=== PATIENT | male | born 1945 | race Caucasian/White ===

== ENCOUNTER 2025-05-13 10:27 | Observation (INO) ==
--- NOTE | 2025-05-13 10:40 | Emergency Department Note ---
Impression & Plan Weakness, Somnolence, Abnormal brain CT ED Provider Note NAME: ELTON COSME AGE: 80 SEX: M : 1945 ARRIVES VIA: Ambulance INFORMANT: [Patient][nursing, ems] ED PROVIDER(S): [Hemanth Baron MD] CHIEF COMPLAINT: Weakness HISTORY OF PRESENT ILLNESS: The patient is an 80-year-old male from [facility]. The patient has had progressive weakness for a month to the point where he now can barely function or even feed himself. The patient denies any pain, he is not short of breath. He is a poor historian though. He cannot really shed much light on the events of last month. PMHx/PSHx/Social Hx: See Below PHYSICAL EXAM: GENERAL: Patient is in no acute distress. HEENT: No acute trauma, normocephalic atraumatic, mucous membranes moist, no nasal congestion. Pupils equal and reactive to light. NECK: No stridor, no adenopathy, no meningismus, trachea is midline. LUNGS: Clear to auscultation bilaterally, no wheeze, no rhonchi, breath sounds equal. HEART: Without murmurs gallops or rubs, regular rate and rhythm. Heart tones distant. ABDOMEN: Soft, nontender, no peritonitis. EXTREMITIES: No cyanosis, full range of motion of all the joints without pain or difficulty. NEUROLOGIC: Awake and alert, seems somnolent. Moves all extremities equally. SKIN: No jaundice, no diaphoresis. DIFFERENTIAL DIAGNOSIS: Stroke, electrolyte imbalance, anemia, UTI, liver or renal failure, debilitation, among others. EMERGENCY DEPARTMENT PROCEDURES: MEDICAL DECISION MAKING: There is no leukocytosis or worrisome anemia. There is a normal platelet count. No bandemia. No renal failure or significant electrolyte abnormality. No concerning liver enzyme elevation. Ammonia level is not elevated. The patient appears to be in a euthyroid state. ECG shows an atrial pacemaker, no acute ischemia. Cardiac enzyme testing x 1 is not consistent with acute cardiac injury. Urinalysis does not show infection. Brain CT shows some chronic older changes but no acute bleed. On exam, the patient was fairly somnolent and appeared diffusely weak. He was not toxic or febrile. The patient did complain of some left hip pain during his ED stay. Films of the left hip and pelvis were performed, no fracture or bony dislocation seen. Patient received IV saline for hydration. The patient's symptoms have progressed for more than a month. He is now at the point where he can no longer feed himself. He is not safe for discharge back to his care facility. Hospitalization, further workup/care is warranted. I spoke with the patient and case management, the on-call hospitalist was consulted. Prior/Outside records/notes reviewed: Today's EMS note describing his presentation and transport at this hospital. ECG per my interpretation: Indication was weakness. The ECG shows an atrial pacemaker with a prolonged AV conduction. The rate is 75. There is some baseline artifact. LVH is present. There is no acute ST elevation, no PVCs. The QTc is 419. Continuous Cardiac Monitoring per my interpretation: An order was placed for continuous cardiac monitoring. The monitor shows a rate of 66 with an atrial pacemaker. Imaging/x-ray results per my interpretation: Chest x-ray does not show pneumonia or CHF. Films of the left hip and pelvis do not show fracture or dislocation. Chronic Medical/Social conditions affecting care: Advanced age, [facility] resident. Care/Management discussed with: Case management and the on-call hospitalist. Level of care consideration(s): After review of the information above and other included data: --I believe the patient requires escalation of care to admission DISPOSITION: Admission Past Med/Surg History Problem List (Updated 05/13/25 @ 17:56 by Hemanth Baron MD) Abnormal brain CT (Acute) Somnolence (Acute) Weakness (Acute) Ambulatory dysfunction At high risk for falls Prediabetes History of CVA (cerebrovascular accident) Altered mental status Generalized weakness Hyperlipidemia Dehydration (Acute) Medical History CKD stage 3a, GFR 45-59 ml/min Seizures Hyperparathyroidism Aortic valve stenosis Anemia Surgical History (Updated 05/13/25 @ 13:55 by Jayy Vidales PA-C) Status cardiac pacemaker Social History Smoking Status: Never smoker Hx Alcohol Use: No Hx Substance Use: No Preferred Language: Kenyan Communication Ability: 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 Required: No Beliefs That Will Affect Care: None Current Living Situation: Personal Care Facility Other Information That Helps Us Care for You: No Feels Safe at Home: Yes Safety Concerns: Feels Safe At This Time Assistive Devices: Cane and Walker Allergies Allergies Allergy/AdvReac Type Severity Reaction Status Date / Time No Known Allergies Allergy Unverified 05/13/25 13:08 Home Meds Home Medications Medication Instructions Recorded Confirmed atorvastatin 40 mg tablet 40 mg PO DAILY #0 tabs 03/13/15 05/13/25 acetaminophen 500 mg tablet 1,000 mg PO DAILY pain 05/13/25 05/13/25 gabapentin 100 mg tablet 100 mg PO TID 05/13/25 05/13/25 lamotrigine 100 mg tablet 100 mg PO DAILY 05/13/25 05/13/25 levetiracetam 500 mg tablet 1,000 mg PO HS 05/13/25 05/13/25 (Keppra) levetiracetam 500 mg tablet 500 mg PO QAM 05/13/25 05/13/25 (Keppra) quetiapine 25 mg tablet (Seroquel) 25 mg PO BID 05/13/25 05/13/25 Results & Data (ED) Vital Signs Vital Signs - 24 hr 05/13/25 10:35 05/13/25 10:38 05/13/25 10:53 Temperature 36.4 C L Temperature Source Oral Pulse Rate 66 Pulse Rate [Apical] Pulse Rate from SpO2 Sensor Respiratory Rate 18 Respiratory Effort / Characteristics Non-Labored Spontaneous Respiratory Depth Normal Respiratory Pattern Regular Blood Pressure 155/92 H Blood Pressure [Left Arm] Blood Pressure Mean 113 Blood Pressure Mean [Left Arm] Blood Pressure Position [Left Arm] Pulse Oximetry 97 96 94 Oxygen Delivery Method Room Air Room Air Room Air Sepsis Recent Fever Within 48 Hours No Sepsis New/Unexplained Change in Mental Status No Sepsis Action Taken by Nursing No Action Required 05/13/25 10:57 05/13/25 11:00 05/13/25 11:06 Temperature Temperature Source Pulse Rate 60 60 60 Pulse Rate [Apical] Pulse Rate from SpO2 Sensor 60 60 Respiratory Rate 12 12 Respiratory Effort / Characteristics Respiratory Depth Respiratory Pattern Blood Pressure Blood Pressure [Left Arm] Blood Pressure Mean Blood Pressure Mean [Left Arm] Blood Pressure Position [Left Arm] Pulse Oximetry 95 95 Oxygen Delivery Method Sepsis Recent Fever Within 48 Hours Sepsis New/Unexplained Change in Mental Status Sepsis Action Taken by Nursing 05/13/25 11:15 05/13/25 11:16 05/13/25 11:16 Temperature Temperature Source Pulse Rate 64 Pulse Rate [Apical] Pulse Rate from SpO2 Sensor 63 Respiratory Rate 16 Respiratory Effort / Characteristics Respiratory Depth Respiratory Pattern Blood Pressure 154/85 H 154/85 H Blood Pressure [Left Arm] Blood Pressure Mean 122 122 Blood Pressure Mean [Left Arm] Blood Pressure Position [Left Arm] Pulse Oximetry 96 Oxygen Delivery Method Sepsis Recent Fever Within 48 Hours Sepsis New/Unexplained Change in Mental Status Sepsis Action Taken by Nursing 05/13/25 11:16 05/13/25 11:19 05/13/25 11:24 Temperature Temperature Source Pulse Rate 60 Pulse Rate [Apical] 61 Pulse Rate from SpO2 Sensor 60 Respiratory Rate 14 12 Respiratory Effort / Characteristics Non-Labored Spontaneous Respiratory Depth Normal Respiratory Pattern Regular Blood Pressure 154/85 H Blood Pressure [Left Arm] 154/85 H Blood Pressure Mean 122 Blood Pressure Mean [Left Arm] 108 Blood Pressure Position [Left Arm] Semi-fowlers Pulse Oximetry 97 96 Oxygen Delivery Method Room Air Sepsis Recent Fever Within 48 Hours Sepsis New/Unexplained Change in Mental Status Sepsis Action Taken by Nursing 05/13/25 11:30 05/13/25 11:30 05/13/25 11:39 Temperature Temperature Source Pulse Rate 64 Pulse Rate [Apical] Pulse Rate from SpO2 Sensor 64 Respiratory Rate 14 Respiratory Effort / Characteristics Respiratory Depth Respiratory Pattern Blood Pressure 167/90 H 167/90 H Blood Pressure [Left Arm] Blood Pressure Mean 127 127 Blood Pressure Mean [Left Arm] Blood Pressure Position [Left Arm] Pulse Oximetry 97 Oxygen Delivery Method Sepsis Recent Fever Within 48 Hours Sepsis New/Unexplained Change in Mental Status Sepsis Action Taken by Nursing 05/13/25 11:48 05/13/25 12:03 05/13/25 12:30 Temperature Temperature Source Pulse Rate 60 61 Pulse Rate [Apical] Pulse Rate from SpO2 Sensor 60 62 Respiratory Rate 16 18 Respiratory Effort / Characteristics Respiratory Depth Respiratory Pattern Blood Pressure 170/85 H 173/98 H Blood Pressure [Left Arm] Blood Pressure Mean 113 133 Blood Pressure Mean [Left Arm] Blood Pressure Position [Left Arm] Pulse Oximetry 97 96 Oxygen Delivery Method Sepsis Recent Fever Within 48 Hours Sepsis New/Unexplained Change in Mental Status Sepsis Action Taken by Nursing 05/13/25 12:30 05/13/25 13:00 05/13/25 13:00 Temperature Temperature Source Pulse Rate 62 67 Pulse Rate [Apical] 64 Pulse Rate from SpO2 Sensor 62 67 Respiratory Rate 16 18 15 Respiratory Effort / Characteristics Respiratory Depth Normal Respiratory Pattern Blood Pressure Blood Pressure [Left Arm] Blood Pressure Mean Blood Pressure Mean [Left Arm] Blood Pressure Position [Left Arm] Pulse Oximetry 98 96 Oxygen Delivery Method Sepsis Recent Fever Within 48 Hours Sepsis New/Unexplained Change in Mental Status Sepsis Action Taken by Nursing 05/13/25 13:01 05/13/25 13:27 05/13/25 13:31 Temperature Temperature Source Pulse Rate 68 Pulse Rate [Apical] Pulse Rate from SpO2 Sensor 68 Respiratory Rate 19 Respiratory Effort / Characteristics Respiratory Depth Respiratory Pattern Blood Pressure 183/80 H 185/86 H Blood Pressure [Left Arm] Blood Pressure Mean 126 112 Blood Pressure Mean [Left Arm] Blood Pressure Position [Left Arm] Pulse Oximetry 95 Oxygen Delivery Method Sepsis Recent Fever Within 48 Hours Sepsis New/Unexplained Change in Mental Status Sepsis Action Taken by Nursing 05/13/25 13:33 Temperature Temperature Source Pulse Rate 62 Pulse Rate [Apical] Pulse Rate from SpO2 Sensor 62 Respiratory Rate 17 Respiratory Effort / Characteristics Respiratory Depth Respiratory Pattern Blood Pressure Blood Pressure [Left Arm] Blood Pressure Mean Blood Pressure Mean [Left Arm] Blood Pressure Position [Left Arm] Pulse Oximetry 97 Oxygen Delivery Method Sepsis Recent Fever Within 48 Hours Sepsis New/Unexplained Change in Mental Status Sepsis Action Taken by [facility] Medications Current Medication List: was personally reviewed by me Laboratory Data Attestation: I reviewed the patient's lab results. 05/13/25 10:41 05/13/25 10:41 Lab Results 05/13/25 05/13/25 Range/Units 10:41 12:29 WBC 7.06 (4.8-10.8) K/ul RBC 4.37 L (4.70-6.10) M/uL Hgb 13.6 L (14.0-18.0) g/dl Hct 42.2 (42.0-52.0) % MCV 96.6 (80.0-100.0) fL MCH 31.1 (25.0-34.0) pg MCHC 32.2 (32.0-36.0) g/dL RDW Std Deviation 43.6 (36.4-46.3) fL RDW Coeff of Shyam 12.2 (11.5-14.5) % Plt Count 164 (130-400) K/uL MPV 10.5 (9.4-12.4) fL Immature Gran % (Auto) 0.3 % Neut % (Auto) 55.0 % Lymph % (Auto) 25.5 % Saunders % (Auto) 9.6 % Eos % (Auto) 8.6 % Baso % (Auto) 1.0 % Neut # (Auto) 3.88 (1.40-6.50) K/uL Lymph # (Auto) 1.80 (1.20-3.40) K/uL Saunders # (Auto) 0.68 H (0.11-0.59) K/uL Eos # (Auto) 0.61 H (0.00-0.50) K/uL Baso # (Auto) 0.07 (0.00-0.20) K/uL Immature Gran # (Auto) 0.02 (0.01-0.20) K/uL Sodium 145 (136-145) mmol/L Potassium 4.2 (3.5-5.1) mmol/L Chloride 111 H (98-107) mmol/L Carbon Dioxide 28 (21-32) mmol/L Anion Gap 6 (3-11) BUN 21 (6-23) mg/dl Creatinine 1.23 (0.6-1.4) mg/dl Est Cr Clr Drug Dosing 49.5 ml/min eGFR 59.35 BUN/Creatinine Ratio 17.1 (10-20) Glucose 91 (70-99(Fasting)) mg/dl Calcium 9.6 (8.6-10.3) mg/dl Magnesium 2.1 (1.7-2.4) mg/dl Total Bilirubin 0.7 (0.2-1.0) mg/dl AST 16 (13-39) U/L ALT 18 (7-52) U/L Alkaline Phosphatase 75 (34-104) U/L Ammonia 26.0 (18-72) umol/L Troponin I High Sens 8.9 (0-20) pg/ml Total Protein 7.5 (6.0-8.3) gm/dl Albumin 4.5 (3.4-5.0) gm/dl Globulin 3.0 (2.5-4.0) gm/dl Albumin/Globulin Ratio 1.5 (0.9-2) TSH 0.627 (0.300-4.500) uIu/ml Urine Color Yellow Urine Appearance Clear (Clear) Urine pH 6.0 (4.5-7.5) Ur Specific [place] 1.020 (1.000-1.030) Urine Protein Trace H (Negative) Urine Glucose (UA) Negative (Negative) Urine Ketones Negative (Negative) Urine Blood Negative (Negative) Urine Nitrite Negative (Negative) Urine Bilirubin Negative (Negative) Urine Urobilinogen Negative (Negative) Ur Leukocyte Esterase Negative (Negative) Urine WBC (Auto) 0-5 (0-5) /hpf Urine RBC (Auto) 0-2 (0-2) /hpf U Hyaline Cast (Auto) 0-2 (0-2) /lpf U Epithel Cells (Auto) 0-2 (0-2) /hpf Urine Bacteria (Auto) None Seen (None Seen) Urine Comment Administered Medications Gabapentin (Gabapentin 100 Mg Cap) 100 mg PO TID [facility] Stop: 06/12/25 15:14 Last Admin: 05/13/25 16:10 Dose: 100 mg Documented By: AUBRIE Discontinued Medications Sodium Chloride (Nss) 500 mls @ 999 mls/hr IV .Q31M NATHANIEL Stop: 05/13/25 11:15 Last Infusion: 05/13/25 12:08 Dose: Infused Documented By: Admin: 05/13/25 11:17 Dose: 999 mls/hr Documented By: RUFUS Ioversol (Optiray 320 125ml) 118 ml IV ONCE ONE Stop: 05/13/25 13:59 Last Admin: 05/13/25 13:58 Dose: 118 ml Documented By: NYLA Imaging Data Radiologist's Impression: Chest X-Ray 05/13/25 10:37 XR chest 1V portable CLINICAL HISTORY: weakness COMPARISON STUDY: 03/13/2015 FINDINGS: There is an interval left-sided dual-lead pacemaker. Stable mild cardiomegaly without pulmonary vascular congestion. No effusion, consolidation, or pneumothorax. IMPRESSION: No acute findings. ACT 112: Negative or not required by law. Electronically signed by: Luis Fernando Castillo M.D. 05/13/2025 10:[address] 05/13/25 10:37 CT head/brain wo con CLINICAL HISTORY: weak. TECHNIQUE: Multiple axial CT images of the head were obtained without contrast. A dose lowering technique was utilized adhering to the principles of ALARA. CT DOSE: 625.8 mGy.cm COMPARISON: 03/13/2015 FINDINGS: There is progressive severe patchy periventricular hypodensity which is nonspecific but usually represents chronic small vessel ischemic change. There is interval focal hypodensity posteriorly in the occipital lobes consistent with interval infarctions, likely old. There is an interval 2 cm serpiginous increased density finding posterior medial right occipital lobe. There are globus pallidus calcifications. No intracranial hemorrhage seen. No mass effect, midline shift, or hydrocephalus. No skull fracture seen. Visualized paranasal sinuses and mastoid air cells are clear. IMPRESSION: 1. Progressive severe chronic small vessel ischemic changes. 2. Interval infarctions in the posterior occipital lobes, likely chronic. 3. Interval serpiginous increased density finding posterior medial right occipital lobe. This likely represents partially calcified cortex due to prior infarction or hemorrhage. Suggest follow-up MRI with and without contrast to make sure there is no enhancing mass at this location. 4. Otherwise no acute findings seen. 5. Otherwise as described. ACT 112: Positive. There are findings on this exam that require communication between the performing entity and the patient following Patient Test Result Information Act ([place] Act 112) guidelines. The above report was generated using voice recognition software. It may contain grammatical, syntax or spelling errors. Electronically signed by: Luis Fernando Castillo M.D. 05/13/2025 11:25 AM Hip/Pelvis X-Ray 05/13/25 11:16 EXAM: XR hip LT 2V w pelvis CLINICAL HISTORY: Pelvic pain. TECHNIQUE: X-ray images of the left hip joint AP and lateral, and pelvis AP views were obtained. COMPARISON: No prior studies available for comparison. FINDINGS: Bone Structure: Pelvic bones, including the iliac wings, ischium, pubis, and sacrum, are normal and intact. No evidence of fractures, dislocations, or significant osseous lesions. 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 No evidence of hip dislocation or subluxation. Acetabulum: Acetabular structures appear normal and intact. No signs of acetabular fracture or dysplasia. Symphysis Pubis: Symphysis pubis is normal and intact. No evidence of separation or widening. Sacroiliac Joints: Mild bilateral degenrtaive sacroiliitis. Soft Tissues: Two left-sided pelvic phleboli. Large well-defined midline pelvic density noted in the expected site of the urinary bladder, suggesting contrast filling / large stones for clinical, U/S, and CT correlation. Left-sided calcifications noted overlying the gluteal insertion into the greater trochanter. Additional Findings: No other significant abnormalities noted. IMPRESSION: 1. 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 2. Mild bilateral degenertaive sacroiliitis. 3. Two left-sided pelvic phleboli. 4. Large, well-defined midline pelvic density noted in the expected site of the urinary bladder, suggesting contrast filling rather than large stones for clinical, U/S, and CT correlation. 5. Left-sided calcifications overlying the gluteal insertion into the greater trochanter, suggesting Gluteal calcific tendinitis. 6. No evidence of acute fractures or dislocations. Disclaimer: A subtle bone abnormality or fracture may not be readily apparent on X-rays, thus clinical correlation and further imaging including follow-up CT, MRI, or follow-up X-rays are advised as needed. Electronically signed by Joni Hill 05-13-2025 5:36 PM Discharge Plan Visit Data Chief Complaint: Weakness ED Provider: Hemanth Baron Discharge Problem: Weakness, Somnolence, Abnormal brain CT Patient Disposition: Admitted As Inpatient Condition: Fair Discharge Instructions Interventions: ED Discharge Assessment Last Done: 05/13/25 14:36
--- NOTE | 2025-05-13 10:55 | XRay Report ---
XR chest 1V portable CLINICAL HISTORY: weakness COMPARISON STUDY: 03/13/2015 FINDINGS: There is an interval left-sided dual-lead pacemaker. Stable mild cardiomegaly without pulmo nary vascular congestion. No effusion, consolidation, or pneumothorax. IMPRESSION: No acute findings. ACT 112: Negative or not required by law. Electronically signed by: Luis Fernando Castillo M.D. 05/13/2025 10:54 AM
[2025-05-13 11:04] LABS: Hematocrit (blood only) 42.2 % (42.0-52.0); Hemoglobin 13.6 g/dl (14.0-18.0); Immature Granulocytes # (auto) 0.02 K/uL (0.01-0.20); Immature Granulocytes % (auto) 0.3 %; Mean Corpuscular Hemoglobin 31.1 pg (25.0-34.0); Mean Corpuscular Volume 96.6 fL (80.0-100.0); Platelet Count 164 K/uL (130-400); RDW Standard Deviation 43.6 fL (36.4-46.3); Red Blood Count 4.37 M/uL (4.70-6.10); White Blood Count 7.06 K/ul (4.8-10.8)
[2025-05-13] MEDS: SODIUM CHLORIDE 0.9% 500 ML IV SCH (11:17)
[2025-05-13 11:18] LABS: Alanine Aminotransferase 18.0 U/L (7-52); Albumin Globulin Ratio 1.5 (0.9-2); Alkaline Phosphatase 75.0 U/L (34-104); Anion Gap 6.0 (3-11); Bilirubin,Total 0.7 mg/dl (0.2-1.0); Blood Urea Nitrogen 21.0 mg/dl (6-23); Calcium 9.6 mg/dl (8.6-10.3); Carbon Dioxide 28.0 mmol/L (21-32); Chloride 111.0 mmol/L (98-107); Creatinine Clr Calc Pharmacy 49.5 ml/min; Globulin 3.0 gm/dl (2.5-4.0); Glucose 91.0 mg/dl (70-99(Fasting)); Magnesium 2.1 mg/dl (1.7-2.4); Potassium 4.2 mmol/L (3.5-5.1); Sodium 145.0 mmol/L (136-145); Total Protein 7.5 gm/dl (6.0-8.3)
--- NOTE | 2025-05-13 11:26 | CT Scan Report ---
CT head/brain wo con CLINICAL HISTORY: weak. TECHNIQUE: Multiple axial CT images of the head were obtained without contrast. A dose lowering tech nique was utilized adhering to the principles of ALARA. CT DOSE: 625.8 mGy.cm COMPARISON: 03/13/2015 FINDINGS: There is progressive severe patchy periventricular hypodensity which is nonspecific but usu ally represents chronic small vessel ischemic change. There is interval focal hypodensity posteriorly in the occipital lobes consistent with interval infarctions, likely old. There is an interval 2 cm s erpiginous increased density finding posterior medial right occipital lobe. There are globus pallidus calcifications. No intracranial hemorrhage seen. No mass effect, midline shift, or hydrocephalus. No skull fracture seen. Visualized paranasal sinuses and mastoid air cells are clear. IMPRESSION: 1. Progressive severe chronic small vessel ischemic changes. 2. Interval infarctions in the posterior occipital lobes, likely chronic. 3. Interval serpiginous increased density finding posterior medial right occipital lobe. This likely represents partially calcified cortex due to prior infarction or hemorrhage. Suggest follow-up MRI wi th and without contrast to make sure there is no enhancing mass at this location. 4. Otherwise no acute findings seen. 5. Otherwise as described. ACT 112: Positive. There are findings on this exam that require communication between the performing entity and the patient following Patient Test Result Information Act ([place] Act 112) guidelines. The above report was generated using voice recognition software. It may contain grammatical, syntax o r spelling errors. Electronically signed by: Luis Fernando Castillo M.D. 05/13/2025 11:25 AM
[2025-05-13 11:32] LABS: Thyroid Stimulating Hormone 0.627 uIu/ml (0.300-4.500)
--- NOTE | 2025-05-13 12:39 | History & Physical Report ---
Date of Service May 13, 2025 Assessment & Plan (1) Altered mental status: (2) History of CVA (cerebrovascular accident): (3) Generalized weakness: (4) Ambulatory dysfunction: Plan This is an 80-year-old male who presented on 05/13 from [facility] for decreased ADLs x 1 month [place]. Nursing staff concerned due to 1 month decline in ambulation, thought processes, and ability to feed himself; they believe he may need a higher level of care. #Altered mental status | H/o CVA Per nursing staff at [facility], patient has had a acute decline over the past month and cognition No leukocytosis; afebrile UA negative on arrival CXR without acute findings Nursing staff at [facility] denies strokelike symptoms (such as slurred speech, facial droop, or unilateral deficits) While he has had CVAs in the past, he is not currently on blood thinners due to history of brain bleed (per son) Medical records requested from [facility] Head CT on arrival revealed progressive severe chronic small vessel ischemic changes, and chronic infarcts; no acute finding Head/neck CTA ordered, pending Brain MRI ordered, pending Case management consult appreciated; while patient has had an acute decline over the past month, suspect there is a large chronic component/gradual decline that may require patient to seek out a higher level of care upon discharge #Generalized weakness | ambulatory dysfunction PT/OT evaluations appreciated Fall precautions #Neuropathy Continue gabapentin 100 mg TID #Mood disorder Continue quetiapine 25 mg BID #HLD Continue atorvastatin 40 mg daily AM fasting lipid panel #History of seizures Continue Keppra 500 mg QAM and 1000 mg QPM Continue lamotrigine 100 mg QAM #Cardiac pacemaker present Noted; placed at [facility] Pacemaker interrogation ordered VT x 84 beats in October 2024 at 114bpm; ? sinus tach Episodes of SVT in November 2024 (154bpm) No additional episodes since March, per [employer] Continuous telemetry monitoring for now #Prediabetic Not currently on diabetic medications T2DM diet BSG checks ACHS AM A1c Disposition: Admit to [facility] with telemetry VTE PPx: SCDs; hold chemical DVT PPx pending paperwork from outside hospitals (? son reports history of brain bleed) Spoke on the phone with patient's son/medical POA (Gold) and provided update regarding admission status 05/13. Spoke on the phone with patient's son (Boris), who lives in [place], and provided update regarding admission status 05/13. History of Present Illness Chief Complaint: Weakness, generalized decline Primary Care Provider: Andreea of [place] Mr. Wright is an 80-year-old male with PMH of HLD. He presented from [facility] on 05/13 for worsening weakness and confusion over the past month. Per [facility] nursing staff, he has had a generalized decline in ADLs; difficulty walking and unable to feed himself. Patient is a poor historian on arrival. He is unsure why he is in the hospital, but says he thinks he "had an emergency". He denies any pain at this time. No falls. He is unsure if he has been sick recently, but thinks he may have had a fever at one point. He also reports that his legs have felt restless, and that he is having tics which are new for him. Overall, he reports that he "just does not feel good". Patient exhibits difficulty articulating his thoughts, and often struggles responding to questioning. He is alert and oriented to name, , month of the year, and knows that he is in the hospital; however he is unsure of his purpose in the hospital. He denies smoking, tobacco use, recent alcohol use. Patient is hypertensive 170/85 at admission; vitals otherwise stable. ED course: NSS 500 mL IV ROS: Patient endorses potential fever earlier in the week (he is unsure; says is "wasn't major"), generalized fatigue, Patient denies chills, night-sweats, body aches, dizziness, lightheadedness, headaches, changes in vision, confusion, chest pain, SOB, abdominal pain, nausea, vomiting, change in urinary/bowel habits, burning with urination, or numbness/tingling in the arms or legs. Spoke on the phone with [facility] nursing staff (Hilaria) who is familiar with the patient. She reports that, when he originally came to [facility] a couple months ago, he was doing okay, then had a very noticeable/rapid decline over the past month. Nursing staff report that his cognition has declined, and while he was originally using a cane upon arrival, he was transition to a walker, as he was deemed unsafe to use a cane. Today, while ambulating to the hallways, he needed a chair due to decreased ambulatory function. Additionally, he was unable to focus, and could not remember where he was walking. Nursing staff does report that his medications have recently been changed (some of the dosage for his seizure medications were changed, and he was started on Seroquel yesterday on 05/12). Nursing staff denies witnessing any strokelike symptoms such as slurred speech, facial droop, unilateral deficits. No reported falls. No reported seizures. Overall, they characterize it as an acute change in cognitive/physical baseline over a 1 month period. Patient is having difficulty with ADLs, and is unable to feed himself. For these reasons, staff are concerned that he is not currently at the right level of care. Spoke on the phone with patient's son/medical POA (Gold). Son reports he has not seen him in the past couple months, however his other son (Boris) lives in [place] and reports that - since [facility] - there has been a significant change. Gold reports that the patient's cognition has gradually been declining over the past 2 years, and they would be transient episodes of loss of focus or thought processes. Son also reports that he does have a history of prior stroke/TIAs, as well as a blood clot in his brain. He believes he is unable to take blood thinners due to history of brain bleed. These records are from [facility] in [place]. There are also hospital records from [facility] in [place], where patient was that for a couple years. Spoke on the phone with patient's son (Boris). He reports that he sees his father every week or so. Patient was previously living in [place], but came to [facility] at the end of January (2.5 months). Patient visited with him 1 week before , and took him to a baseball game; at that time the patient was doing well, ambulating well, and did not exhibit many cognitive deficits. Then, when the son saw him on the week following the game, he felt like he "did not look like the same person". Boris is unsure about the reason for not being on antiplatelets, but has been told the patient is unable to take aspirin/Plavix. Son believes that his pacemaker was placed at [facility]. Allergies Allergy/AdvReac Type Severity Reaction Status Date / Time No Known Allergies Allergy Unverified 05/13/25 13:08 Home Medications Medication Instructions Recorded Confirmed Type atorvastatin 40 mg tablet 40 mg PO DAILY #0 tabs 03/13/15 05/13/25 History acetaminophen 500 mg tablet 1,000 mg PO DAILY pain 05/13/25 05/13/25 History gabapentin 100 mg tablet 100 mg PO TID 05/13/25 05/13/25 History lamotrigine 100 mg tablet 100 mg PO DAILY 05/13/25 05/13/25 History levetiracetam 500 mg tablet 1,000 mg PO HS 05/13/25 05/13/25 History (Keppra) levetiracetam 500 mg tablet 500 mg PO QAM 05/13/25 05/13/25 History (Keppra) quetiapine 25 mg tablet (Seroquel) 25 mg PO BID 05/13/25 05/13/25 History Past Med/Surg History Problem List (Updated 05/13/25 @ 17:56 by Hemanth Baron MD) Abnormal brain CT (Acute) Somnolence (Acute) Weakness (Acute) Ambulatory dysfunction At high risk for falls Prediabetes History of CVA (cerebrovascular accident) Altered mental status Generalized weakness Hyperlipidemia Dehydration (Acute) Medical History CKD stage 3a, GFR 45-59 ml/min Seizures Hyperparathyroidism Aortic valve stenosis Anemia Surgical History (Updated 05/13/25 @ 13:55 by Jayy Vidales PA-C) Status cardiac pacemaker Social History Smoking Status: Never smoker Hx Alcohol Use: No Hx Substance Use: No Preferred Language: Venezuelan Communication Ability: Effective Licensed Clinician Required: No Beliefs That Will Affect Care: None Current Living Situation: Personal Care Facility Other Information That Helps Us Care for You: No Feels Safe at Home: Yes Safety Concerns: Feels Safe At This Time Assistive Devices: Cane and Walker Review of Systems Review of Systems: See HPI above Physical Exam Physical Exam: General: no acute distress; pleasant affect; non-toxic appearing; frail appearing; cooperative; SpO2 96% on RA HEENT: normocephalic, atraumatic; no scleral icterus; PERRLA w/ EOMs intact; vision and hearing intact Neck: supple; no lymphadenopathy; trachea midline Skin: warm, dry without signs of tenting; no cyanosis; no rashes, bruising, lesions, or erythema noted CV: chest wall NTP; RRR; S1/S2 normal; no murmurs/rubs/gallops; pulses intact and symmetric at radial, DP, and PT Lungs: no acute respiratory distress; symmetrical chest wall expansion; clear br eath sounds across all lung leal w/o adventitious sounds; no wheezing ABD: Soft, NTP; BS present; no rebound/guarding; no distention MSK: no tics or fasciculations; no edema noted in the LEs b/l, nonerythematous; 5/5% bilaterally; patient demonstrates ability wiggle toes bilaterally Neuro: A&Ox3, but does not know why he is in the hospital; slow to respond to questioning; difficulty with articulation; fluent speech, no slurred speech or facial droop; no focal deficits appreciated; patient reports sensation is intact dysmetric in the upper and lower extremities bilaterally Results & Data Results & Data Vital Signs (Past 12 Hours) Vital Signs Temp Pulse Pulse Resp BP BP Pulse Ox 05/13/25 12:03 61 18 170/85 H 96 05/13/25 11:48 60 16 97 05/13/25 11:39 64 14 97 05/13/25 11:30 167/90 H 05/13/25 11:30 167/90 H 05/13/25 11:24 60 12 96 05/13/25 11:19 61 14 154/85 H 97 05/13/25 11:16 154/85 H 05/13/25 11:16 154/85 H 05/13/25 11:16 154/85 H 05/13/25 11:15 64 16 96 05/13/25 11:06 60 05/13/25 11:00 60 12 95 05/13/25 10:57 60 12 95 05/13/25 10:53 94 05/13/25 10:38 96 05/13/25 10:35 36.4 C L 66 18 155/92 H 97 O2 Del Method 05/13/25 12:03 05/13/25 11:48 05/13/25 11:39 05/13/25 11:30 05/13/25 11:30 05/13/25 11:24 05/13/25 11:19 Room Air 05/13/25 11:16 05/13/25 11:16 05/13/25 11:16 05/13/25 11:15 05/13/25 11:06 05/13/25 11:00 05/13/25 10:57 05/13/25 10:53 Room Air 05/13/25 10:38 Room Air 05/13/25 10:35 Room Air Laboratory Results Abnormal lab results 05/13/25 Range/Units 10:41 RBC 4.37 L (4.70-6.10) M/uL Hgb 13.6 L (14.0-18.0) g/dl [place] # (Auto) 0.68 H (0.11-0.59) K/uL [place] # (Auto) 0.61 H (0.00-0.50) K/uL Chloride 111 H (98-107) mmol/L Diagnostic Findings Chest X-Ray 05/13/25 10:37 XR chest 1V portable CLINICAL HISTORY: weakness COMPARISON STUDY: 03/13/2015 FINDINGS: There is an interval left-sided dual-lead pacemaker. Stable mild cardiomegaly without pulmonary vascular congestion. No effusion, consolidation, or pneumothorax. IMPRESSION: No acute findings. ACT 112: Negative or not required by law. Electronically signed by: Luis Fernando Castillo M.D. 05/13/2025 10:[address] 05/13/25 10:37 CT head/brain wo con CLINICAL HISTORY: weak. TECHNIQUE: Multiple axial CT images of the head were obtained without contrast. A dose lowering technique was utilized adhering to the principles of ALARA. CT DOSE: 625.8 mGy.cm COMPARISON: 03/13/2015 FINDINGS: There is progressive severe patchy periventricular hypodensity which is nonspecific but usually represents chronic small vessel ischemic change. There is interval focal hypodensity posteriorly in the occipital lobes consistent with interval infarctions, likely old. There is an interval 2 cm serpiginous increased density finding posterior medial right occipital lobe. There are globus pallidus calcifications. No intracranial hemorrhage seen. No mass effect, midline shift, or hydrocephalus. No skull fracture seen. Visualized paranasal sinuses and mastoid air cells are clear. IMPRESSION: 1. Progressive severe chronic small vessel ischemic changes. 2. Interval infarctions in the posterior occipital lobes, likely chronic. 3. Interval serpiginous increased density finding posterior medial right occipital lobe. This likely represents partially calcified cortex due to prior infarction or hemorrhage. Suggest follow-up MRI with and without contrast to make sure there is no enhancing mass at this location. 4. Otherwise no acute findings seen. 5. Otherwise as described. ACT 112: Positive. There are findings on this exam that require communication between the performing entity and the patient following Patient Test Result Information Act ([place] Act 112) guidelines. The above report was generated using voice recognition software. It may contain grammatical, syntax or spelling errors. Electronically signed by: Luis Fernando Castillo M.D. 05/13/2025 11:25 AM ECG Additional Comments: ECG revealed atrial paced rhythm with prolonged AV conduction at 75 bpm; QTc 419 (no prior EKGs for comparison) Code Status & VTE Plan Code Status DNR/DNI (confirmed via paperwork sent in from [facility], as well as with [facility] nursing staff) VTE Prophylaxis Plan VTE Prophylaxis will be ordered: Yes Supervising Physician Co-Signing Physician Notes Attending Attestation & Admit Note: Pt seen/examined, chart reviewed, admit care plan d/w VITOR Vidales. I agree w/ the roland components of his admission documentation. 80yo male with history of pacemaker status, hyperlipidemia, seizure disorder, prior stroke, ?prior ICH, mild cognitive impairment, pre-DM, and recent placement at [facility]. By report of the staff at [facility] as well as the pt's family he has had a progressive decline in his overall physical/mental status since arrival to [facility]. He has had severe confusion to the point of requiring antipsychotic use (started yesterday by report). During my admission assessment he was unable to offer any meaningful history. He had considerable difficulty answering questions. 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 PMH/PSH/allergies/meds/sochx - reviewed VSS, afebrile gen - awake, alert - but confused, unable to answer questions eyes - PERRL mouth - MM dry neck - no JVD heart - RRR, s1 s2, 2/6 systolic murmur RUSB lungs - CTA b/l abd - soft NT ND BS+ ext - no edema, pulses 2+ b/l feet neuro - strength 5/5 x 4 exts; EOMI and without nystagmus; visual leal seem full by direct confrontation psych - oriented to person only labs reviewed CT head - IMPRESSION: 1. Progressive severe chronic small vessel ischemic changes. 2. Interval infarctions in the posterior occipital lobes, likely chronic. 3. Interval serpiginous increased density finding posterior medial right occipital lobe. This likely represents partially calcified cortex due to prior infarction or hemorrhage. Suggest follow-up MRI with and without contrast to make sure there is no enhancing mass at this location. Hip x-ray - hips without fracture; however -- Large, well-defined midline pelvic density noted in the expected site of the urinary bladder, suggesting contrast filling rather than large stones for clinical, U/S, and CT correlation. EKG - pacing A/P: 1. progressive global decline - physically & mental-status clarke - over several months 2. prior/old strokes - details uncertain - with abnormal CT head 3. pacemaker status - reason for implantation uncertain - placed in [place]? 4. h/o seizures on keppra - details uncertain 5. hyperlipidemia, pre-DM 6. systolic murmur 7. abnormal pelvic x-ray - mildline "pelvic density" - etiology uncertain -would obtain CTA head/neck in light of prior strokes -obtain MRI brain to gain more information on prior strokes as well as r/o new stroke -pacer interrogation -consider dedicated CT a/p in light of #7 above; to my knowledge he has not had recent IV contrast as outpatient -echo -consider EEG -check whole blood B1 level; check B12 level -TSH is wnl -appreciate Flash obtaining collateral information from pt's children and [facility] itself Mino Solis MD PG Care Time/CCT Total # of Minutes Spent Total Time Spent with Patient: Total time spent is greater than 50% in coordination of care (as documented) at patient's floor/unit and/or counseling patient: [place] [address] INT INP/OBS CARE 3/75MIN Patient Type New Medical Decision Making High Complexity Diagnoses Altered mental status R41.82 History of CVA (cerebrovascular accident) Z86.73 Generalized weakness R53.1 Ambulatory dysfunction R26.2
[2025-05-13 13:00] LABS: Appearance Urine Clear (Clear); Bacteria Urine Automated None Seen (None Seen); Cast Urine Automated 0-2 /lpf (0-2); Epithelial Cell Urine Auto 0-2 /hpf (0-2); Glucose Urine UA Negative (Negative); RBC Urine Automated 0-2 /hpf (0-2); WBC Urine Automated 0-5 /hpf (0-5)
[2025-05-13] MEDS: OPTIRAY 320 125ml IV ONE (13:58)
--- NOTE | 2025-05-13 14:16 | CT Scan Report ---
CT angio head w con CLINICAL HISTORY: AMS. TECHNIQUE: Unenhanced axial CT scan of the brain is performed. Subsequently, following the IV adminis tration of 120 cc of Optiray, CT angiogram of the brain was performed from the skull base to the vert ex. Images are reviewed in the axial, sagittal, and coronal planes. 3-D MIPS images are created and a ssessed. IV contrast was administered without complication. All measurements were obtained according to NASCET criteria. A dose lowering technique was utilized adhering to the principles of ALARA. CT DOSE: 498.32 mGy.cm COMPARISON STUDY: Head CT earlier today FINDINGS: Distal right vertebral artery is diminutive, anatomic variant. No significant narrowing or occlusion seen at the distal internal carotid or vertebral arteries bilaterally. The anterior, middle , and posterior cerebral arteries are patent bilaterally. Cerebral venous sinuses opacify normally. IMPRESSION: No significant arterial narrowing or occlusion seen at the brain. ACT 112: Negative or not required by law. The above report was generated using voice recognition software. It may contain grammatical, syntax o r spelling errors. Electronically signed by: Luis Fernando Castillo M.D. 05/13/2025 2:13 PM
--- NOTE | 2025-05-13 14:21 | CT Scan Report ---
CT ANGIOGRAPHY OF THE NECK WITH CONTRAST CLINICAL HISTORY: Altered mental status. COMPARISON STUDY: No previous studies for comparison. Technique: CT angiography of the carotid and vertebral arteries was obtained using Optiray and 3D rec onstruction on an independent workstation. NASCET criteria was utilized. Automated exposure control was utilized for the study. A dose lowering technique was utilized adhering to the principles of ALA RA. Findings: Visualized portions of the lung apices are unremarkable. A left subclavian pacer is partial ly imaged. There is no cervical lymphadenopathy. There are no cervical spine fractures. There is mode rate plaque within the carotid bifurcations. This results in mild focal stenosis of the proximal righ t internal carotid artery with 30%. Vessel measures 4.3 mm at site of narrowing and 5.6 mm distally. There is no stenosis of the cervical left internal carotid artery. The left vertebral artery is domin ant. There is no aneurysm or dissection within the neck. IMPRESSION: 1. Focal mild (30%) stenosis of the proximal right internal carotid artery. 2. No additional stenoses within the neck. 3. No aneurysm or dissection within the neck. ACT 112: Negative or not required by law. Electronically signed by: Micheal Timmons M.D. 05/13/2025 2:20 PM
[2025-05-13] MEDS ORDERED: GLUCOSE 10 TAB/TUBE PO PRN (15:06)
[2025-05-13] MEDS ORDERED: DEXTROSE 50% 50 ML SYRINGE IV PRN (15:06)
[2025-05-13] MEDS ORDERED: CARBOHYDRATES FOR HYPOGLYCEMIA PO PRN (15:06)
[2025-05-13] MEDS ORDERED: GLUCAGON FOR INJ 1 MG VIAL SQ PRN (15:06)
[2025-05-13] MEDS ORDERED: GLUCOSE 40% GEL 15 GM TUBE PO PRN (15:06)
[2025-05-13] MEDS: GABAPENTIN 100 MG CAP PO SCH (16:10)
--- NOTE | 2025-05-13 17:36 | XRay Report ---
EXAM: XR hip LT 2V w pelvis CLINICAL HISTORY: Pelvic pain. TECHNIQUE: X-ray images of the left hip joint AP and lateral, and pelvis AP views were obtained. COMPARISON: No prior studies available for comparison. FINDINGS: Bone Structure: Pelvic bones, including the iliac wings, ischium, pubis, and sacrum, are normal and intact. No evidence of fractures, dislocations, or significant osseous lesions. 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 No evidence of hip dislocation or subluxation. Acetabulum: Acetabular structures appear normal and intact. No signs of acetabular fracture or dysplasia. Symphysis Pubis: Symphysis pubis is normal and intact. No evidence of separation or widening. Sacroiliac Joints: Mild bilateral degenrtaive sacroiliitis. Soft Tissues: Two left-sided pelvic phleboli. Large well-defined midline pelvic density noted in the expected site of the urinary bladder, suggesting contrast filling / large stones for clinical, U/S, and CT correlation. Left-sided calcifications noted overlying the gluteal insertion into the greater trochanter. Additional Findings: No other significant abnormalities noted. IMPRESSION: 1. 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 2. Mild bilateral degenertaive sacroiliitis. 3. Two left-sided pelvic phleboli. 4. Large, well-defined midline pelvic density noted in the expected site of the urinary bladder, suggesting contrast filling rather than large stones for clinical, U/S, and CT correlation. 5. Left-sided calcifications overlying the gluteal insertion into the greater trochanter, suggesting Gluteal calcific tendinitis. 6. No evidence of acute fractures or dislocations. Disclaimer: A subtle bone abnormality or fracture may not be readily apparent on X-rays, thus clinical correlation and further imaging including follow-up CT, MRI, or follow-up X-rays are advised as needed. Electronically signed by Joni Hill 05-13-2025 5:36 PM
[2025-05-13] MEDS: levETIRAcetam 500 MG TAB PO SCH (20:39)
--- NOTE | 2025-05-14 04:27 | Electrocardiogram Report ---
Test Reason : Blood Pressure : */* mmHG Vent. Rate : 75 BPM Atrial Rate : 75 BPM P-R Int : 214 ms QRS Dur : 98 ms QT Int : 376 ms P-R-T Axes : 64 -26 36 degrees QTcB Int : 419 ms Atrial-paced rhythm with prolonged AV conduction Minimal voltage criteria for LVH, may be normal variant ( R in aVL ) Abnormal ECG When compared with ECG of 13-Mar-2015 11:39, Electronic atrial pacemaker has replaced Sinus rhythm Confirmed by Iain Romo ([id number]) on 05/14/2025 4:26:31 AM Referred By: [facility] Confirmed By: Iain Romo
[2025-05-14 06:01] LABS: Hematocrit (blood only) 43.0 % (42.0-52.0); Hemoglobin 13.9 g/dl (14.0-18.0); Mean Corpuscular Hemoglobin 31.2 pg (25.0-34.0); Mean Corpuscular Volume 96.6 fL (80.0-100.0); Platelet Count 166 K/uL (130-400); RDW Standard Deviation 43.6 fL (36.4-46.3); Red Blood Count 4.45 M/uL (4.70-6.10); White Blood Count 7.93 K/ul (4.8-10.8)
[2025-05-14 06:14] LABS: Anion Gap 6.0 (3-11); Calcium 9.4 mg/dl (8.6-10.3); Carbon Dioxide 30.0 mmol/L (21-32); Chloride 109.0 mmol/L (98-107); Potassium 4.3 mmol/L (3.5-5.1); Sodium 145.0 mmol/L (136-145)
[2025-05-14 06:20] LABS: Blood Urea Nitrogen 19.0 mg/dl (6-23); Cholesterol 129.0 mg/dl (0-200); Creatinine Clr Calc Pharmacy 51.6 ml/min; Glucose 89.0 mg/dl (70-99(Fasting)); HDL Cholesterol 50.0 mg/dl; Triglycerides 135.0 mg/dl (0-150)
[2025-05-14 08:10] LABS: Hemoglobin A1C 6.3 % (4.5-5.6)
[2025-05-14] MEDS: levETIRAcetam 500 MG TAB PO SCH (08:30)
[2025-05-14] MEDS: ATORVASTATIN 40 MG TAB PO SCH (08:30)
[2025-05-14] MEDS: lamoTRIgine 100 MG TAB PO SCH (08:30)
[2025-05-14] MEDS: ACETAMINOPHEN 500 MG TAB PO SCH (08:33)
--- NOTE | 2025-05-14 10:56 | Hospitalist Progress Note ---
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 Nursing staff [place] denies strokelike symptoms including slurred speech, facial droop, unilateral deficits. On admission, CXR without acute findings, UA negative, no leukocytosis, afebrile. Head CT noted progressive severe chronic small vessel ischemic changes and chronic infarctions in the posterior occipital lobes. Head CTA unremarkable, neck CTA noted focal mild stenosis of the right proximal inter nal carotid artery otherwise unremarkable. Echocardiogram with normal left ventricular size and systolic function, EF 60 to 65%, no regional wall motion abnormalities, mild concentric left ventricular hypertrophy, severe aortic stenosis with mild regurgitation,, mild MR, normal estimated RV systolic pressure. #Altered mental status | H/o CVA - While he has had CVAs in the past, he is not currently on blood thinners due to history of brain bleed (per son) - Brain MRI initially ordered but has been deferred due to radiology stating the patient needs to be oriented to answer questions during the MRI - Case management consult appreciated; while patient has had an acute decline over the past month, suspect there is a large chronic component/gradual decline that may require patient to seek out a higher level of care upon discharge #Generalized weakness | ambulatory dysfunction - PT/OT evaluations appreciated - Fall precautions #Neuropathy - Continue gabapentin 100 mg TID #Mood disorder - Continue quetiapine 25 mg BID #HLD - Continue atorvastatin 40 mg daily. Lipid panel WNL #History of seizures - Continue Keppra 500 mg QAM and 1000 mg QPM - Continue lamotrigine 100 mg QAM #Cardiac pacemaker present - Noted; placed at [facility] - Pacemaker interrogation ordered VT x 84 beats in October 2024 at 114bpm; ? sinus tach Episodes of SVT in November 2024 (154bpm) No additional episodes since March, per [employer] - Continuous telemetry monitoring for now #Prediabetic - Not currently on diabetic medications - A1c 6.3% - fasting AM serum glucose 89 - T2DM diet, BSG checks ACHS - Will defer to outpatient provider Disposition: Pending PT/OT evals VTE PPx: SCDs; hold chemical DVT PPx pending paperwork from outside hospitals (? son reports history of brain bleed) Admission and Anticipated Discharge Date Admission Date: May 13, 2025 Supervising Physician Co-Signing Physician Notes The patient was not seen by me. The chart was reviewed. Case discussed with VITOR Nelson. Agree with assessment and plan Subjective Patient seen and evaluated at bedside with 1:1 present. He had a 1:1 overnight due to frequently getting OOB and ripping his IV out. He is calmly laying in bed at this time. He is oriented to person only and responds slowly to questions. He reports feeling tired but otherwise denies complaints. Returned to bedside in afternoon to re-evaluate patient after RN reported he was becoming agitated. He was calmly lying in bed talking on the phone with his son with RN and 1:1 present at bedside. When Rashaun finished his phone call, he stated that he "no longer wants to talk with [his] son" because he is mad that his son isn't coming to take him home. Patient was redirected to his lunch and remained calm. No further orders, complaints or concerns at this time. Review of Systems Review of Systems: Unobtainable due to cognitive status Physical Exam Physical Exam: General: No acute distress, nondiaphoretic, frail appearing elderly male. Cardiac: Regular rate and rhythm. Systolic murmur noted. No peripheral edema. Pulm: Clear to auscultation bilaterally without wheezes, rales or rhonchi. Normal respiratory effort. 96% on room air. Abdominal: Soft, nontender, nondistended. Bowel sounds present. Neuro: A&O x1 (self). Slow to respond to questions. 5/5 strength in UE and LE bilaterally. Mild clonus in wrists bilaterally. No focal neurological deficits. Results & Data Results & Data Vital Signs (Past 12 Hours) Vital Signs Temp Pulse Pulse Resp BP BP Pulse Ox 05/14/25 07:43 97.7 F 61 16 183/95 H 96 05/14/25 07:13 60 05/13/25 23:34 98.4 F 68 18 114/74 94 O2 Del Method 05/14/25 07:43 Room Air 05/14/25 07:13 05/13/25 23:34 Room Air Laboratory Results Reviewed CBC Reviewed BMP, chemistries Reviewed lipid panel Reviewed A1c Diagnostic Findings Reviewed CXR, head CT, hip/pelvis x-ray, head and neck CTAs PG Care Time/CCT Total # of Minutes Spent Total Time Spent with Patient: Total time spent is greater than 50% in coordination of care (as documented) at patient's floor/unit and/or counseling patient: Coding Level of Care Code 94503 SUB INP/OBS CARE 3/50MIN Diagnoses Altered mental status R41.82 History of CVA (cerebrovascular accident) Z86.73 Generalized weakness R53.1 Ambulatory dysfunction R26.2
--- NOTE | 2025-05-14 17:04 | XCELERA ---
[id number]
--- NOTE | 2025-05-15 16:44 | Hospitalist Progress Note ---
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 Nursing staff concerned due to 1 month decline in ambulation, thought processes, and ability to feed himself; they believe he may need a higher level of care. Nursing staff [place] denies strokelike symptoms including slurred speech, facial droop, unilateral deficits. On admission, CXR without acute findings, UA negative, no leukocytosis, afebrile. Head CT noted progressive severe chronic small vessel ischemic changes and chronic infarctions in the posterior occipital lobes. Head CTA unremarkable, neck CTA noted focal mild stenosis of the right proximal inter nal carotid artery otherwise unremarkable. Echocardiogram with normal left ventricular size and systolic function, EF 60 to 65%, no regional wall motion abnormalities, mild concentric left ventricular hypertrophy, severe aortic stenosis with mild regurgitation,, mild MR, normal estimated RV systolic pressure. #Altered mental status | H/o CVA - Possible late effects/sequelae of prior/old cerebral infarction(s) - While he has had CVAs in the past, he is not currently on blood thinners due to history of brain bleed (per son) - Brain MRI initially ordered but has been deferred due to radiology stating the patient needs to be oriented to answer questions during the MRI - Case management consult appreciated; while patient has had an acute decline over the past month, suspect there is a large chronic component/gradual decline that may require patient to seek out a higher level of care upon discharge #Generalized weakness | ambulatory dysfunction - PT/OT evaluations appreciated - PT/OT have not been able to evaluate patient yet due to him being sleepy/lethargic when they have gone to see him - Fall precautions #Neuropathy - Continue gabapentin 100 mg TID #Mood disorder - Continue quetiapine 25 mg BID #HLD - Continue atorvastatin 40 mg daily. Lipid panel WNL #History of seizures - Continue Keppra 500 mg QAM and 1000 mg QPM - Continue lamotrigine 100 mg QAM #Cardiac pacemaker present - Noted; placed at [facility] - Pacemaker interrogation ordered VT x 84 beats in October 2024 at 114bpm; ? sinus tach Episodes of SVT in November 2024 (154bpm) No additional episodes since March, per [employer] tech - Continuous telemetry monitoring for now #Prediabetic - Not currently on diabetic medications - A1c 6.3% - fasting AM serum glucose 89 - T2DM diet, BSG checks ACHS - Will defer to outpatient provider Disposition: Pending PT/OT evals VTE PPx: SCDs Admission and Anticipated Discharge Date Admission Date: May 13, 2025 Supervising Physician Co-Signing Physician Notes The patient was not seen by me. The chart was reviewed. Case discussed with VITOR Nelson. Agree with assessment and plan Subjective Patient seen and evaluated at bedside. He slept most of the morning but has been awake and calm this afternoon. He kept repeating "you're beautiful" when myself or his RN would ask him questions. No meaningful ROS able to be ob tained. He appears comfortable and does not seem to have any acute needs at this time. Physical Exam Physical Exam: General: No acute distress, nondiaphoretic, frail appearing elderly male. Cardiac: Well-perfused. No peripheral edema. Rate in 60s. Pulm: Normal respiratory effort. 95% on room air. Abdominal: Soft, nontender, nondistended. Bowel sounds present. Neuro: A&O x1 (self). Slow to respond to questions. 5/5 strength in UE and LE bilaterally. Mild clonus in wrists bilaterally. No focal neurological deficits. Results & Data Results & Data Vital Signs (Past 12 Hours) Vital Signs Temp Pulse Pulse Resp BP BP Pulse Ox 05/15/25 15:07 97.3 F L 68 16 149/75 H 95 05/15/25 13:43 68 05/15/25 11:39 97.5 F L 69 16 88/53 L 95 05/15/25 07:35 73 05/15/25 07:26 98.2 F 67 18 168/86 H 94 O2 Del Method 05/15/25 15:07 Room Air 05/15/25 13:43 05/15/25 11:39 Room Air 05/15/25 07:35 05/15/25 07:26 Room Air PG Care Time/CCT Total # of Minutes Spent Total Time Spent with Patient: Total time spent is greater than 50% in coordination of care (as documented) at patient's floor/unit and/or counseling patient: Coding Level of Care Code 46638 SUB INP/OBS CARE 235MIN Diagnoses Altered mental status R41.82 History of CVA (cerebrovascular accident) Z86.73 Generalized weakness R53.1 Ambulatory dysfunction R26.2
--- NOTE | 2025-05-16 12:20 | Hospitalist Progress Note ---
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 Nursing staff [place] denies strokelike symptoms including slurred speech, facial droop, unilateral deficits. On admission, CXR without acute findings, UA negative, no leukocytosis, afebrile. Head CT noted progressive severe chronic small vessel ischemic changes and chronic infarctions in the posterior occipital lobes. Head CTA unremarkable, neck CTA noted focal mild stenosis of the right proximal inter nal carotid artery otherwise unremarkable. Echocardiogram with normal left ventricular size and systolic function, EF 60 to 65%, no regional wall motion abnormalities, mild concentric left ventricular hypertrophy, severe aortic stenosis with mild regurgitation,, mild MR, normal estimated RV systolic pressure. #Altered mental status | H/o CVA - Possible late effects/sequelae of prior/old cerebral infarction(s) - While he has had CVAs in the past, he is not currently on blood thinners due to history of brain bleed (per son) - Brain MRI initially ordered but has been deferred due to radiology stating the patient needs to be oriented to answer questions during the MRI - Case management consult appreciated; while patient has had an acute decline over the past month, suspect there is a large chronic component/gradual decline that may require patient to seek out a higher level of care upon discharge #Generalized weakness | ambulatory dysfunction - PT/OT evaluations appreciated - PT/OT have not been able to evaluate patient yet due to him being sleepy/lethargic when they have gone to see him - Fall precautions #Neuropathy - Continue gabapentin 100 mg TID #Mood disorder - Continue quetiapine 25 mg BID #HLD - Continue atorvastatin 40 mg daily. Lipid panel WNL #History of seizures - Continue Keppra 500 mg QAM and 1000 mg QPM - Continue lamotrigine 100 mg QAM #Cardiac pacemaker present - Noted; placed at [facility] - Pacemaker interrogation ordered: VT x 84 beats in October 2024 at 114bpm; ? sinus tach. Episodes of SVT in November 2024 (154bpm). No additional episodes since March, per [employer] tech - No events on telemetry while hospitalized. Downgraded off tele 05/16 #Prediabetic - Not currently on diabetic medications - A1c 6.3% - fasting AM serum glucose 89 - T2DM diet, BSG checks ACHS - Will defer to outpatient provider Disposition: SNF referrals made by CM - unable to return to [facility], requires higher level of care VTE PPx: SCDs Downgraded off tele Admission and Anticipated Discharge Date Admission Date: May 13, 2025 Supervising Physician Co-Signing Physician Notes The patient was not seen by me. The chart was reviewed. Case discussed with VITOR Nelson. Agree with assessment and plan Subjective Patient seen and evaluated bedside. He was sleeping soundly in bed and did not wake to the sound of my voice. I allowed him to continue resting. RN reports he ate all of his breakfast and fed himself with her assistance. He spent time in the bedside chair and worked with OT earlier this morning. No acute compla ints or concerns at this time. Physical Exam Physical Exam: General: No acute distress, nondiaphoretic, frail appearing elderly male. Cardiac: Well-perfused. No peripheral edema. Rate in 60s. Pulm: Normal respiratory effort. 91% on room air. Neuro: A&O x1 (self). No focal neurological deficits. Results & Data Results & Data Vital Signs (Past 12 Hours) Vital Signs Temp Pulse Pulse Resp BP BP Pulse Ox 05/16/25 11:05 97.9 F 85 18 124/76 91 05/16/25 07:36 77 05/16/25 03:17 97.9 F 72 20 148/82 H 94 05/16/25 00:46 62 O2 Del Method 05/16/25 11:05 Room Air 05/16/25 07:36 05/16/25 03:17 Room Air 05/16/25 00:46 Diagnostic Findings Reviewed telemetryNSR/paced in 60s PG Care Time/CCT Total # of Minutes Spent Total Time Spent with Patient: Total time spent is greater than 50% in coordination of care (as documented) at patient's floor/unit and/or counseling patient: Coding Level of Care Code 92014 SUB INP/OBS CARE 2/35MIN Diagnoses Altered mental status R41.82 History of CVA (cerebrovascular accident) Z86.73 Generalized weakness R53.1 Ambulatory dysfunction R26.2"
--- NOTE | 2025-05-17 12:54 | Hospitalist Progress Note ---
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 Nursing staff concerned due to 1 month decline in ambulation, thought processes, and ability to feed himself; they believe he may need a higher level of care. Nursing staff [place] denies strokelike symptoms including slurred speech, facial droop, unilateral deficits. On admission, CXR without acute findings, UA negative, no leukocytosis, afebrile. Head CT noted progressive severe chronic small vessel ischemic changes and chronic infarctions in the posterior occipital lobes. Head CTA unremarkable, neck CTA noted focal mild stenosis of the right proximal inter nal carotid artery otherwise unremarkable. Echocardiogram with normal left ventricular size and systolic function, EF 60 to 65%, no regional wall motion abnormalities, mild concentric left ventricular hypertrophy, severe aortic stenosis with mild regurgitation,, mild MR, normal estimated RV systolic pressure. #Altered mental status | H/o CVA - Possible late effects/sequelae of prior/old cerebral infarction(s) - While he has had CVAs in the past, he is not currently on blood thinners due to history of brain bleed (per son) - Brain MRI initially ordered but has been deferred due to radiology stating the patient needs to be oriented to answer questions during the MRI - Case management consult appreciated; while patient has had an acute decline over the past month, suspect there is a large chronic component/gradual decline that may require patient to seek out a higher level of care upon discharge Awaiting SNF placement; referrals made to [facility], [facility], [facility], and [facility] on 05/15 #Generalized weakness | ambulatory dysfunction - PT/OT evaluations appreciated Recommend SNF placement on 05/16 as patient tires easily; example: Was too fatigued to transfer back to bed after lunch - Fall precautions #Neuropathy - Continue gabapentin 100 mg TID #Mood disorder - Continue quetiapine 25 mg BID #HLD - Continue atorvastatin 40 mg daily. Lipid panel WNL #History of seizures - Continue Keppra 500 mg QAM and 1000 mg QPM - Continue lamotrigine 100 mg QAM #Cardiac pacemaker present - Noted; placed at [facility] - Pacemaker interrogation ordered: VT x 84 beats in October 2024 at 114bpm; ? sinus tach. Episodes of SVT in November 2024 (154bpm). No additional episodes since March, per [employer] tech - No events on telemetry while hospitalized. Downgraded off tele 05/16 #Prediabetic - Not currently on diabetic medications - A1c 6.3% - fasting AM serum glucose 89 - T2DM diet, BSG checks ACHS - Will defer to outpatient provider Disposition: SNF referrals made by CM - unable to return to [facility], requires higher level of care VTE PPx: SCDs Admission and Anticipated Discharge Date Admission Date: May 13, 2025 Supervising Physician Co-Signing Physician Notes The patient was not seen by me. The chart was reviewed. Case discussed with VITOR Schmid. Agree with assessment and plan Subjective Mr. Wright is resting peacefully in bed this morning watching baseball. He reports no new complaints. He reports that it was chilly last night, but he slept okay. He has been eating and drinking well. He also reports that he "feels good in the hospital", and that he just needs to rest. He is unsure if PT has come to see him yet. While he does appear to be a poor historian at this time (incoherent thought processes / responses to some questioning), he is A&O x 3 and denies any pain or fevers overnight. ROS: Patient denies fever, chills, night sweats, chest pain, chest palpitations, SOB, cough, abdominal pain, N/V/D, changes in urinary bowel habits, or pain in the legs. Review of Systems Review of Systems: See HPI above Physical Exam Physical Exam: General: no acute distress; resting peacefully in bed; pleasant affect; non-toxi c appearing; frail appearing; cooperative; SpO2 95% on RA HEENT: normocephalic, atraumatic; no scleral icterus; PERRLA; vision intact; hard of hearing Neck: supple; no lymphadenopathy; trachea midline Skin: warm, dry without signs of tenting; no cyanosis; no rashes, bruising, lesions, or erythema noted CV: chest wall NTP; RRR; S1/S2 normal; no murmurs/rubs/gallops; pulses intact and symmetric at radial, DP, and PT Lungs: no acute respiratory distress; symmetrical chest wall expansion; clear breath sounds across all lung leal w/o adventitious sounds; no wheezing ABD: Soft, NTP; BS present; no rebound/guarding; no distention MSK: no tics or fasciculations; no edema noted in the LEs b/l, nonerythematous; 5/5 medicare contact specialist strength bilaterally; patient demonstrates ability wiggle toes bilaterally Neuro: A&Ox3, but does not know why he is in the hospital; slow to respond to questioning; difficulty with articulation; fluent speech, no slurred speech or facial droop; no focal deficits appreciated; patient reports sensation is intact and symmetric in the upper and lower extremities bilaterally Results & Data Results & Data Vital Signs (Past 12 Hours) Vital Signs Temp Pulse Resp BP Pulse Ox O2 Del Method 05/17/25 07:12 36.7 C 66 18 145/81 H 95 Room Air PG Care Time/CCT Total # of Minutes Spent Total Time Spent with Patient: Total time spent is greater than 50% in coordination of care (as documented) at patient's floor/unit and/or counseling patient: Coding [place] [address] SUB INP/OBS CARE 12/20MIN Patient Type Established Medical Decision Making Low Complexity Diagnoses Altered mental status R41.82 History of CVA (cerebrovascular accident) Z86.73 Generalized weakness R53.1 Ambulatory dysfunction R26.2
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
[2025-05-18 10:34] LABS: Hematocrit (blood only) 43.3 % (42.0-52.0); Hemoglobin 14.6 g/dl (14.0-18.0); Immature Granulocytes # (auto) 0.02 K/uL (0.01-0.20); Immature Granulocytes % (auto) 0.2 %; Mean Corpuscular Hemoglobin 31.6 pg (25.0-34.0); Mean Corpuscular Volume 93.7 fL (80.0-100.0); Platelet Count 175 K/uL (130-400); RDW Standard Deviation 41.4 fL (36.4-46.3); Red Blood Count 4.62 M/uL (4.70-6.10); White Blood Count 9.16 K/ul (4.8-10.8)
[2025-05-18 11:12] LABS: Anion Gap 10.0 (3-11); Blood Urea Nitrogen 28.0 mg/dl (6-23); Calcium 9.8 mg/dl (8.6-10.3); Carbon Dioxide 23.0 mmol/L (21-32); Chloride 107.0 mmol/L (98-107); Creatinine Clr Calc Pharmacy 42.0 ml/min; Glucose 108.0 mg/dl (70-99(Fasting)); Potassium 4.5 mmol/L (3.5-5.1); Sodium 140.0 mmol/L (136-145)
--- NOTE | 2025-05-18 11:34 | Hospitalist Progress Note ---
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 Nursing staff [place] denies strokelike symptoms including slurred speech, facial droop, unilateral deficits. On admission, CXR without acute findings, UA negative, no leukocytosis, afebrile. Head CT noted progressive severe chronic small vessel ischemic changes and chronic infarctions in the posterior occipital lobes. Head CTA unremarkable, neck CTA noted focal mild stenosis of the right proximal inter nal carotid artery otherwise unremarkable. Echocardiogram with normal left ventricular size and systolic function, EF 60 to 65%, no regional wall motion abnormalities, mild concentric left ventricular hypertrophy, severe aortic stenosis with mild regurgitation,, mild MR, normal estimated RV systolic pressure. #Altered mental status | H/o CVA - Possible late effects/sequelae of prior/old cerebral infarction(s) While he has had CVAs in the past, he is not currently on blood thinners due to history of brain bleed (per son) Brain MRI initially ordered but has been deferred due to radiology stating the patient needs to be oriented to answer questions during the MRI Case management consult appreciated; while patient has had an acute decline over the past month, suspect there is a large chronic component/gradual decline that may require patient to seek out a higher level of care upon discharge Awaiting SNF placement; referrals [facility] to [facility], [facility], and [facility] on 05/15 No updates on 05/18; [facility] updated that they do not have beds available #Agitation | mood disorder Alerted by nurse on evening of 05/17 that patient was becoming increasingly agitated/aggressive with staff Zyprexa 5 mg ODT administered x 1 One-to-one observation PRN Note: Patient will likely require to be off one-to-one for 24 hours prior to SNF discharge; was requiring one-to-one the morning of 05/18 Continue quetiapine 25 mg BID #Generalized weakness | ambulatory dysfunction PT/OT evaluations appreciated Recommend SNF placement Fall precautions #Neuropathy - Continue gabapentin 100 mg TID #HLD - Continue atorvastatin 40 mg daily. Lipid panel WNL #History of seizures - Continue Keppra 500 mg QAM and 1000 mg QPM - Continue lamotrigine 100 mg QAM #Cardiac pacemaker present Noted; placed at [facility] Pacemaker interrogation ordered: VT x 84 beats in October 2024 at 114bpm; ? sinus tach. Episodes of SVT in November 2024 (154bpm). No additional episodes since March, per [employer] tech No events on telemetry while hospitalized. Downgraded off tele 05/16 #Prediabetic - Not currently on diabetic medications A1c 6.3% - fasting AM serum glucose 89 T2DM diet, BSG checks ACHS Will defer to outpatient provider Disposition: SNF referrals made by CM - unable to return to [facility], requires higher level of care VTE PPx: SCDs Called patient's son/medical POA (Gold) on 05/18 and provided update regarding hospitalization, labs, and waxing/waning episodes of agitation. No updates at present regarding SNF placement. Son appreciative of call. Admission and Anticipated Discharge Date Admission Date: May 13, 2025 Supervising Physician Co-Signing Physician Notes The patient was not seen by me. The chart was reviewed. Case discussed with VITOR Schmid. Agree with assessment and plan Subjective Mr. Wright is resting peacefully in bed this morning. He is a poor historian at this time. He appears tired and is slow to respond to questioning, but does follow commands (such as wiggle toes, and rectangular tank cooper fingers). He denies any pain, infectious symptoms (such as fevers), or new complaints at this time. ROS: Difficult to obtain ROS given patient's current state, however he denies fever, chills, chest pain, SOB, abdominal pain, N/V/D, or changes in urinary bowel habits. Review of Systems Review of Systems: See HPI above Physical Exam Physical Exam: General: no acute distress; resting peacefully in bed; one-to-one sitter present in room; non-toxic appearing; frail appearing; cooperative; SpO2 92% on RA HEENT: normocephalic, atraumatic; no scleral icterus; PERRLA; vision intact; hard of hearing Neck: supple; no lymphadenopathy; trachea midline Skin: warm, dry without signs of tenting; no cyanosis; no rashes, bruising, lesions, or erythema noted CV: chest wall NTP; RRR; S1/S2 normal; no murmurs/rubs/gallops; pulses intact and symmetric at radial, DP, and PT Lungs: no acute respiratory distress; symmetrical chest wall expansion; clear breath sounds across all lung leal w/o adventitious sounds; no wheezing ABD: Soft, NTP; BS present; no rebound/guarding; no distention MSK: no tics or fasciculations; no edema noted in the LEs b/l, nonerythematous; 5/5 rectangular tank cooper strength bilaterally; patient demonstrates ability wiggle toes bilaterally Neuro: A&Ox3, but does not know why he is in the hospital; slow to respond to questioning; difficulty with articulation; fluent speech, no slurred speech or facial droop; no focal deficits appreciated; patient reports sensation is intact and symmetric in the upper and lower extremities bilaterally Results & Data Results & Data Vital Signs (Past 12 Hours) Vital Signs Temp Pulse Resp BP Pulse Ox O2 Del Method 05/18/25 10:08 130/81 05/18/25 07:34 36.7 C 77 18 161/81 H 92 Room Air PG Care Time/CCT Total # of Minutes Spent Total Time Spent with Patient: Total time spent is greater than 50% in coordination of care (as documented) at patient's floor/unit and/or counseling patient: C[place] [address] SUB INP/OBS CARE 2/35MIN Patient Type Established Medical Decision Making Moderate Complexity Diagnoses Altered mental status R41.82 History of CVA (cerebrovascular accident) Z86.73 Generalized weakness R53.1 Ambulatory dysfunction R26.2"
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
[2025-05-19] MEDS: ACETAMINOPHEN 500 MG TAB PO PRN (20:07)
--- NOTE | 2025-05-20 13:08 | Hospitalist Progress Note ---
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 Nursing staff [place] denies strokelike symptoms including slurred speech, facial droop, unilateral deficits. On admission, CXR without acute findings, UA negative, no leukocytosis, afebrile. Head CT noted progressive severe chronic small vessel ischemic changes and chronic infarctions in the posterior occipital lobes. Head CTA unremarkable, neck CTA noted focal mild stenosis of the right proximal inter nal carotid artery otherwise unremarkable. Echocardiogram with normal left ventricular size and systolic function, EF 60 to 65%, no regional wall motion abnormalities, mild concentric left ventricular hypertrophy, severe aortic stenosis with mild regurgitation,, mild MR, normal estimated RV systolic pressure. #Altered mental status | H/o CVA - Possible late effects/sequelae of prior/old cerebral infarction(s) While he has had CVAs in the past, he is not currently on blood thinners due to history of brain bleed (per son) Brain MRI initially ordered but has been deferred due to radiology stating the patient needs to be oriented to answer questions during the MRI Case management consult appreciated; while patient has had an acute decline over the past month, suspect there is a large chronic component/gradual decline that may require patient to seek out a higher level of care upon discharge Awaiting SNF placement; referrals made to [facility], [facility], [facility], and [facility] on 05/15 No updates on 05/18; [facility] updated that they do not have beds available D/C 1:1 in order to facilitate discharge to SNF -- must be w/o sitter for a minimum of 24 hrs #Agitation | mood disorder Alerted by nurse on evening of 05/17 that patient was becoming increasingly agitated/aggressive with staff Zyprexa 5 mg ODT administered x 1 Increased lethargy on 05/18: Quetiapine switched from 25 mg BID -> 25 mg HS Hold gabapentin #Generalized weakness | ambulatory dysfunction PT/OT evaluations appreciated Recommend SNF placement Fall precautions #Neuropathy - hold gabapentin (as above) #HLD - Continue atorvastatin 40 mg daily. Lipid panel WNL #History of seizures - Continue Keppra 500 mg QAM and 1000 mg QPM - Continue lamotrigine 100 mg QAM #Cardiac pacemaker present Noted; placed at [facility] Pacemaker interrogation ordered: VT x 84 beats in October 2024 at 114bpm; ? sinus tach. Episodes of SVT in November 2024 (154bpm). No additional episodes since March, per [employer] No events on telemetry while hospitalized. Downgraded off tele 05/16 #Prediabetic - Not currently on diabetic medications A1c 6.3% - fasting AM serum glucose 89 T2DM diet, BSG checks ACHS Will defer to outpatient provider Disposition: Given decline in cognition/physical deconditioning, patient is unable to return to [facility], requires higher level of care. Medically stable for d/c when bed is available at SNF. VTE PPx: SCDs Called patient's son/medical POA (Gold) on 05/18 and provided update regarding hospitalization, labs, and waxing/waning episodes of agitation. Admission and Anticipated Discharge Date Admission Date: May 13, 2025 Supervising Physician Co-Signing Physician Notes The patient was not seen by me. The chart was reviewed. Case discussed with VITOR Elizabeth. Agree with assessment and plan Subjective Handy was seen on daily rounds this morning. He is resting comfortably in bed. He is difficult to converse with given his confusion. He is currently without a sitter. He is awaiting placement at SNF, but has to be w/o sitter or any IM antipsychotic meds for at least 24 hours. Review of Systems Review of Systems: Difficult to obtain d/t cognition Physical Exam Physical Exam: GENERAL: 80 yo well-nourished elderly WM. Awake, alert, No distress. Cooperative. LUNGS: Clear to auscultation bilaterally. No W/R/R. CARDIOVASCULAR: Regular rate and rhythm. ABDOMEN: Soft, non-tender and non-distended. BS normoactive x 4 quad. EXTREMITIES: No edema. Non-tender. Peripheral pulses +2/4. PSYCHIATRIC: Confused SKIN: Warm, dry, intact. No rashes or lesions. Results & Data Results & Data Vital Signs (Past 12 Hours) Vital Signs Temp Pulse Resp BP Pulse Ox O2 Del Method 05/20/25 08:11 36.7 C 79 17 110/75 93 Room Air 05/20/25 07:32 Room Air PG Care Time/CCT Total # of Minutes Spent Total Time Spent with Patient: Total time spent is greater than 50% in coordination of care (as documented) at patient's floor/unit and/or counseling patient: 26 minutes Coding Level of Care Code 44228 SUB INP/OBS CARE 12/20MIN Diagnoses Altered mental status R41.82 History of CVA (cerebrovascular accident) Z86.73 Generalized weakness R53.1 Ambulatory dysfunction R26.2"
--- NOTE | 2025-05-21 10:14 | Hospitalist Progress Note ---
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 Nursing staff concerned due to 1 month decline in ambulation, thought processes, and ability to feed himself; they believe he may need a higher level of care. #Altered mental status | H/o CVA Possible late effects/sequelae of prior/old cerebral infarction(s) While he has had CVAs in the past, he is not currently on blood thinners due to history of brain bleed (per son) Brain MRI initially ordered but has been deferred due to radiology stating the patient needs to be oriented to answer questions during the MRI suspect there is a large chronic component/gradual decline that may require patient to seek out a higher level of care upon discharge Awaiting SNF placement; referrals made to [facility], [facility], [facility], and [facility] on 05/15 #Agitation | mood disorder Alerted by nurse on evening of 05/17 that patient was becoming increasingly agitated/aggressive with staff Zyprexa 5 mg ODT administered x 1 Quetiapine 25 mg HS Gabapentin discontinued #Generalized weakness | ambulatory dysfunction PT/OT following - recommend SNF placement Fall precautions #Neuropathy - gabapentin discontinued #HLD - Continue atorvastatin 40 mg daily. Lipid panel WNL #History of seizures Continue Keppra 500 mg QAM and 1000 mg QPM Continue lamotrigine 100 mg QAM #Cardiac pacemaker present Noted; placed at [facility] Pacemaker interrogation ordered: VT x 84 beats in October 2024 at 114bpm; ? sinus tach. Episodes of SVT in November 2024 (154bpm). No additional episodes since March, per [employer] No events on telemetry while hospitalized. Downgraded off tele 05/16 #Prediabetic Not currently on diabetic medications A1c 6.3% - fasting AM serum glucose 89 T2DM diet, BSG checks ACHS Will defer to outpatient provider Disposition: Given decline in cognition/physical deconditioning, patient is unable to return to [facility], requires higher level of care. Medically stable for d/c when bed is available at SNF. VTE PPx: SCDs Admission and Anticipated Discharge Date Admission Date: May 13, 2025 Zacarias Murrell seen and examined this morning. He reports to be feeling well today. Denied any complaints. Physical Exam Physical Exam: General: no acute distress; non-toxic appearing; well-nourished; cooperative HEENT: normocephalic, atraumatic; no scleral icterus; PERRLA w/ EOMs intact; vision and hearing grossly intact Neck: trachea midline Skin: warm, dry without signs of tenting; no cyanosis; no rashes, bruising, lesions, or erythema noted Lungs: no acute respiratory distress; symmetrical chest wall expansion MSK: no edema noted in the LEs b/l, nonerythematous Neuro: pleasantly confused Results & Data Results & Data Vital Signs (Past 12 Hours) Vital Signs Temp Pulse Resp BP Pulse Ox O2 Del Method 05/21/25 07:31 36.9 C 78 18 144/83 H 95 Room Air 05/21/25 07:30 Room Air PG Care Time/CCT Total # of Minutes Spent Total Time Spent with Patient: Total time spent is greater than 50% in coordination of care (as documented) at patient's floor/unit and/or counseling patient: Coding Level of Care Code 27881 SUB INP/OBS CARE 12/20MIN Diagnoses Altered mental status R41.82 History of CVA (cerebrovascular accident) Z86.73 Generalized weakness R53.1 Ambulatory dysfunction R26.2"
[2025-05-21] MEDS: MELATONIN 3 MG TAB PO ONE (21:29)
[2025-05-22 08:13] LABS: Hematocrit (blood only) 42.0 % (42.0-52.0); Hemoglobin 14.0 g/dl (14.0-18.0); Mean Corpuscular Hemoglobin 31.1 pg (25.0-34.0); Mean Corpuscular Volume 93.3 fL (80.0-100.0); Platelet Count 190 K/uL (130-400); RDW Standard Deviation 40.2 fL (36.4-46.3); Red Blood Count 4.50 M/uL (4.70-6.10); White Blood Count 8.58 K/ul (4.8-10.8)
[2025-05-22 08:30] LABS: Anion Gap 8.0 (3-11); Blood Urea Nitrogen 35.0 mg/dl (6-23); Calcium 9.6 mg/dl (8.6-10.3); Carbon Dioxide 24.0 mmol/L (21-32); Chloride 105.0 mmol/L (98-107); Creatinine Clr Calc Pharmacy 43.9 ml/min; Glucose 93.0 mg/dl (70-99(Fasting)); Potassium 4.4 mmol/L (3.5-5.1); Sodium 137.0 mmol/L (136-145)
--- NOTE | 2025-05-22 10:06 | Hospitalist Progress Note ---
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 #Altered mental status | H/o CVA Possible late effects/sequelae of prior/old cerebral infarction(s) While he has had CVAs in the past, he is not currently on blood thinners due to history of brain bleed (per son) Brain MRI initially ordered but has been deferred due to radiology stating the patient needs to be oriented to answer questions during the MRI suspect there is a large chronic component/gradual decline that may require patient to seek out a higher level of care upon discharge Awaiting SNF placement; referrals made to [facility], [facility], and [facility] on 05/15 #Agitation | mood disorder Alerted by nurse on evening of 05/17 that patient was becoming increasingly agitated/aggressive with staff Zyprexa 5 mg ODT administered x 1 Quetiapine 25 mg HS Gabapentin discontinued #Generalized weakness | ambulatory dysfunction PT/OT following - recommend SNF placement Fall precautions #Neuropathy - gabapentin discontinued #HLD - Continue atorvastatin 40 mg daily. Lipid panel WNL #History of seizures Continue Keppra 500 mg QAM and 1000 mg QPM Continue lamotrigine 100 mg QAM #Cardiac pacemaker present Noted; placed at [facility] Pacemaker interrogation ordered: VT x 84 beats in October 2024 at 114bpm; ? sinus tach. Episodes of SVT in November 2024 (154bpm). No additional episodes since March, per [employer] No events on telemetry while hospitalized. Downgraded off tele 05/16 #Prediabetic Not currently on diabetic medications A1c 6.3% - fasting AM serum glucose 89 T2DM diet, BSG checks ACHS Will defer to outpatient provider Disposition: Given decline in cognition/physical deconditioning, patient is unable to return to [facility], requires higher level of care. Medically stable for d/c when bed is available at SNF. VTE PPx: SCDs Admission and Anticipated Discharge Date Admission Date: May 13, 2025 Zacarias Murrell seen and examined this morning. He was resting at time of encounter, denied complaints. Physical Exam Physical Exam: General: no acute distress; non-toxic appearing; well-nourished; cooperative HEENT: normocephalic, atraumatic; no scleral icterus; PERRLA w/ EOMs intact; vision and hearing grossly intact Neck: trachea midline Skin: warm, dry without signs of tenting; no cyanosis; no rashes, bruising, lesions, or erythema noted Lungs: no acute respiratory distress; symmetrical chest wall expansion MSK:no edema noted in the LEs b/l, nonerythematous Neuro: pleasant, confused Results & Data Results & Data Vital Signs (Past 12 Hours) Vital Signs Temp Pulse Resp BP Pulse Ox O2 Del Method 05/22/25 07:55 36.8 C 68 16 145/78 H 95 Room Air PG Care Time/CCT Total # of Minutes Spent Total Time Spent with Patient: Total time spent is greater than 50% in coordination of care (as documented) at patient's floor/unit and/or counseling patient: Coding Level of Care Code 22295 SUB INP/OBS CARE 12/20MIN Diagnoses Altered mental status R41.82 History of CVA (cerebrovascular accident) Z86.73 Generalized weakness R53.1 Ambulatory dysfunction R26.2"
[2025-05-22] MEDS: MELATONIN 3 MG TAB PO PRN (20:25)
--- NOTE | 2025-05-23 12:25 | Hospitalist Progress Note ---
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 #Altered mental status | H/o CVA Possible late effects/sequelae of prior/old cerebral infarction(s) While he has had CVAs in the past, he is not currently on blood thinners due to history of brain bleed (per son) Brain MRI initially ordered but has been deferred due to radiology stating the patient needs to be oriented to answer questions during the MRI suspect there is a large chronic component/gradual decline that may require patient to seek out a higher level of care upon discharge Awaiting SNF placement; referrals made to [facility], [facility], [facility], and [facility] on 05/15 #Agitation | mood disorder Alerted by nurse on evening of 05/17 that patient was becoming increasingly agitated/aggressive with staff --> s/p Zyprexa ODT x 1 Quetiapine 25 mg HS Gabapentin discontinued #Generalized weakness | ambulatory dysfunction PT/OT following - recommend SNF placement Fall precautions #Neuropathy - gabapentin discontinued #HLD - Continue atorvastatin 40 mg daily. Lipid panel WNL #History of seizures Continue Keppra 500 mg QAM and 1000 mg QPM Continue lamotrigine 100 mg QAM #Cardiac pacemaker present Noted; placed at [facility] Pacemaker interrogation ordered: VT x 84 beats in October 2024 at 114bpm; ? sin us tach. Episodes of SVT in November 2024 (154bpm). No additional episodes since March, per [employer] No events on telemetry while hospitalized. Downgraded off tele 05/16 #Prediabetic Not currently on diabetic medications A1c 6.3% - fasting AM serum glucose 89 T2DM diet, BSG checks ACHS Will defer to outpatient provider Disposition: Given decline in cognition/physical deconditioning, patient is unable to return to [facility], requires higher level of care. Medically stable for d/c when bed is available at SNF. VTE PPx: SCDs Admission and Anticipated Discharge Date Admission Date: May 13, 2025 Zacarias Murrell seen and examined this morning. He was resting in bed, denied complaints. Physical Exam Physical Exam: General: no acute distress; non-toxic appearing; well-nourished; cooperative HEENT: normocephalic, atraumatic; no scleral icterus; PERRLA w/ EOMs intact; vision and hearing grossly intact Neck: trachea midline Skin: warm, dry without signs of tenting; no cyanosis; no rashes, bruising, lesions, or erythema noted Lungs: no acute respiratory distress; symmetrical chest wall expansion MSK: no edema noted in the LEs b/l, nonerythematous Neuro: pleasant, confused Results & Data Results & Data Vital Signs (Past 12 Hours) Vital Signs O2 Del Method 05/23/25 08:12 Room Air PG Care Time/CCT Total # of Minutes Spent Total Time Spent with Patient: Total time spent is greater than 50% in coordination of care (as documented) at patient's floor/unit and/or counseling patient: Coding Level of Care Code 24449 SUB INP/OBS CARE 12/20MIN Diagnoses Altered mental status R41.82 History of CVA (cerebrovascular accident) Z86.73 Generalized weakness R53.1 Ambulatory dysfunction R26.2"
--- NOTE | 2025-05-24 10:03 | Hospitalist Progress Note ---
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 #Altered mental status | H/o CVA Possible late effects/sequelae of prior/old cerebral infarction(s) While he has had CVAs in the past, he is not currently on blood thinners due to history of brain bleed (per son) Brain MRI initially ordered but has been deferred due to radiology stating the patient needs to be oriented to answer questions during the MRI suspect there is a large chronic component/gradual decline that may require patient to seek out a higher level of care upon discharge Awaiting SNF placement; referrals made to [facility], [facility], [facility], and [facility] on 05/15 #Agitation | mood disorder Alerted by nurse on evening of 05/17 that patient was becoming increasingly agitated/aggressive with staff --> s/p Zyprexa ODT x 1 Quetiapine 25 mg HS Gabapentin discontinued #Generalized weakness | ambulatory dysfunction PT/OT following - recommend SNF placement Fall precautions #Neuropathy - gabapentin discontinued #HLD - Continue atorvastatin 40 mg daily. Lipid panel WNL #History of seizures Continue Keppra 500 mg QAM and 1000 mg QPM Continue lamotrigine 100 mg QAM #Cardiac pacemaker present Noted; placed at [facility] Pacemaker interrogation ordered: VT x 84 beats in October 2024 at 114bpm; ? sin us tach. Episodes of SVT in November 2024 (154bpm). No additional episodes since March, per [employer] No events on telemetry while hospitalized. Downgraded off tele 05/16 #Prediabetic Not currently on diabetic medications A1c 6.3% - fasting AM serum glucose 89 T2DM diet, BSG checks ACHS Will defer to outpatient provider Disposition: Given decline in cognition/physical deconditioning, patient is unable to return to [facility], requires higher level of care. Medically stable for d/c when bed is available at [facility]. VTE PPx: SCDs Hopeful discharge to [facility] 05/26. ] Admission and Anticipated Discharge Date Admission Date: May 13, 2025 Subjective Handy seen and examined this morning. He was resting comfortably in bed. Denies any complaints. Physical Exam Physical Exam: General: no acute distress; non-toxic appearing; well-nourished; cooperative HEENT: normocephalic, atraumatic; no scleral icterus; PERRLA w/ EOMs intact; vision and hearing grossly intact Neck: trachea midline Skin: warm, dry without signs of tenting; no cyanosis; no rashes, bruising, lesions, or erythema noted Lungs: no acute respiratory distress; symmetrical chest wall expansion MSK: no edema noted in the LEs b/l, nonerythematous Neuro:pleasant, confused Results & Data Results & Data Vital Signs (Past 12 Hours) Vital Signs Temp Pulse Resp BP Pulse Ox O2 Del Method 05/24/25 08:19 Room Air 05/24/25 07:02 36.8 C 82 18 149/79 H 95 Room Air PG Care Time/CCT Total # of Minutes Spent Total Time Spent with Patient: Total time spent is greater than 50% in coordination of care (as documented) at patient's floor/unit and/or counseling patient: Coding Level of Care Code 94731 SUB INP/OBS CARE 12/20MIN Diagnoses Altered mental status R41.82 History of CVA (cerebrovascular accident) Z86.73 Generalized weakness R53.1 Ambulatory dysfunction R26.2"
--- NOTE | 2025-05-25 11:53 | Hospitalist Progress Note ---
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 #Altered mental status | H/o CVA Possible late effects/sequelae of prior/old cerebral infarction(s), he is not currently on blood thinners due to history of brain bleed (per son) Brain MRI initially ordered but has been deferred due to radiology stating the patient needs to be oriented to answer questions during the MRI suspect there is a large chronic component/gradual decline that may require patient to seek out a higher level of care upon discharge Awaiting SNF placement; Discussed with case management, hopeful discharge to [facility] on 05/26 #Agitation | mood disorder Alerted by nurse on evening of 05/17 that patient was becoming increasingly agitated/aggressive with staff --> s/p Zyprexa ODT x 1 - otherwise pleasant Quetiapine 25 mg HS Gabapentin discontinued #Generalized weakness | ambulatory dysfunction PT/OT following - recommend SNF placement Fall precautions #Neuropathy - gabapentin discontinued #HLD - Continue atorvastatin 40 mg daily. Lipid panel WNL #History of seizures Continue Keppra 500 mg QAM and 1000 mg QPM Continue lamotrigine 100 mg QAM #Cardiac pacemaker present Noted; placed at [facility] Pacemaker interrogation ordered: VT x 84 beats in October 2024 at 114bpm; ? sinus tach. Episodes of SVT in November 2024 (154bpm). No additional episodes since March, per [employer] No events on telemetry while hospitalized. Downgraded off tele 05/16 #Prediabetic Not currently on diabetic medications A1c 6.3% - fasting AM serum glucose 89 T2DM diet. BSG discontinued as no insulin orders and because she is acceptable Disposition: Given decline in cognition/physical deconditioning, patient is unable to return to [facility], requires higher level of care. Medically stable for d/c when bed is available at [facility]. VTE PPx: SCDs Hopeful discharge to [facility] 05/26. Admission and Anticipated Discharge Date Admission Date: May 13, 2025 Subjective lying in bed, no family present at bedside reports mild pain but tolerable reports being tired no acute concerns Review of Systems Review of Systems: All systems reviewed & are unremarkable except as noted in Subjective Physical Exam Physical Exam: General: NAD, vitals as above, lying in bed Pulm: breathing unlabored CV: well perfused extremities: moves all extremities Results & Data Results & Data Vital Signs (Past 12 Hours) Vital Signs Temp Pulse Resp BP BP Pulse Ox O2 Del Method 05/25/25 08:41 82 18 127/79 93 Room Air 05/25/25 07:27 Room Air 05/25/25 07:11 98.1 F 100 H 18 173/95 H 93 Room Air Laboratory Results POG glucose reviewed PG Care Time/CCT Total # of Minutes Spent Total Time Spent with Patient: Total time spent is greater than 50% in coordination of care (as documented) at patient's floor/unit and/or counseling patient: Coding Level of Care Code 07619 SUB INP/OBS CARE 12/20MIN Diagnoses Altered mental status R41.82 History of CVA (cerebrovascular accident) Z86.73 Generalized weakness R53.1 Ambulatory dysfunction R26.2"
[2025-05-25 19:37] VITALS: O2SAT 94
[2025-05-26 06:57] VITALS: BP 164/80; PULSE 77; RESP 18; TEMP 98.4
--- NOTE | 2025-05-26 08:54 | Discharge Summary ---
Discharge Summary Date of Service May 26, 2025 Principal Dx & Hospital Course #1 = Principal Diagnosis (1) Altered mental status: (2) History of CVA (cerebrovascular accident): (3) Generalized weakness: (4) Ambulatory dysfunction: Plan #Altered mental status | H/o CVA | Possible late effects/sequelae of prior/old cerebral infarction(s) R/O Dementia | #Generalized weakness | ambulatory dysfunction This is an 80-year-old male who presented on 05/13 from [facility] for decreased ADLs and progressive cognitive decline x 1 month [employer]IVE [employer]. Nursing staff concerned due to 1 month decline in ambulation, thought processes, and ability to feed himself; they believe he may need a higher level of care. Possible late effects/sequelae of prior/old cerebral infarction(s), he is not currently on blood thinners due to history of brain bleed (per son). Brain MRI unable to be completed since patient unable to answer questions during MRI. Likely gradual decline. No acute cause found. PT/OT rec rehab, plan [facility] discharge [facility]. #Agitation | mood disorder - did require one dose of PO zyprexa early in the stay. Doing well on Quetiapine 25 mg HS. Gabapentin discontinued. #Neuropathy - gabapentin discontinued #HLD - Continue atorvastatin 40 mg daily. Lipid panel WNL #History of seizures - Continue Keppra 500 mg QAM and 1000 mg QPM, Continue lamotrigine 100 mg QAM #Cardiac pacemaker present - Pacemaker interrogation ordered: VT x 84 beats in October 2024 at 114bpm; Episodes of SVT in November 2024 (154bpm). No additional episodes since March, per [facility] No events on telemetry while hospitalized. Downgraded off tele 05/16 #Prediabetic A1c 6.3% - continue DMT2 diet. no medications initiated. Disposition: discharge to [facility] today Notes For Next Care Provider Medication Changes From Visit gabapentin discontinued seroquel HS dosing Admission HPI Per Admitting Provider Mr. Wright is an 80-year-old male with PMH of HLD. He presented from [facility] on 05/13 for worsening weakness and confusion over the past month. Per [facility] nursing staff, he has had a generalized decline in ADLs; difficulty walking and unable to feed himself. Patient is a poor historian on arrival. He is unsure why he is in the hospital, but says he thinks he "had an emergency". He denies any pain at this time. No falls. He is unsure if he has been sick recently, but thinks he may have had a fever at one point. He also reports that his legs have felt restless, and that he is having tics which are new for him. Overall, he reports that he "just does not feel good". Patient exhibits difficulty articulating his thoughts, and often struggles responding to questioning. He is alert and oriented to name, , month of the year, and knows that he is in the hospital; however he is unsure of his purpose in the hospital. He denies smoking, tobacco use, recent alcohol use. Patient is hypertensive 170/85 at admission; vitals otherwise stable. ED course: NSS 500 mL IV ROS: Patient endorses potential fever earlier in the week (he is unsure; says is "wasn't major"), generalized fatigue, Patient denies chills, night-sweats, body aches, dizziness, lightheadedness, headaches, changes in vision, confusion, chest pain, SOB, abdominal pain, nausea, vomiting, change in urinary/bowel habits, burning with urination, or numbness/tingling in the arms or legs. Spoke on the phone with [facility] nursing staff (Hilaria) who is familiar with the patient. She reports that, when he originally came to [facility] a couple months ago, he was doing okay, then had a very noticeable/rapid decline over the past month. Nursing staff report that his cognition has declined, and while he was originally using a cane upon arrival, he was transition to a walker, as he was deemed unsafe to use a cane. Today, while ambulating to the hallways, he needed a chair due to decreased ambulatory function. Additionally, he was unable to focus, and could not remember where he was walking. Nursing staff does report that his medications have recently been changed (some of the dosage for his seizure medications were changed, and he was started on Seroquel yesterday on 05/12). Nursing staff denies witnessing any strokelike symptoms such as slurred speech, facial droop, unilateral deficits. No reported falls. No reported seizures. Overall, they characterize it as an acute change in cognitive/physical baseline over a 1 month period. Patient is having difficulty with ADLs, and is unable to feed himself. For these reasons, staff are concerned that he is not currently at the right level of care. Spoke on the phone with patient's son/medical POA (Gold). Son reports he has not seen him in the past couple months, however his other son (Brois) lives in [place] and reports that - since [facility] 03/15/25 - there has been a significant change. Gold reports that the patient's cognition has gradually been declining over the past 2 years, and they would be transient episodes of loss of focus or thought processes. Son also reports that he does have a history of prior stroke/TIAs, as well as a blood clot in his brain. He believes he is unable to take blood thinners due to history of brain bleed. These records are from [facility] in [place]. There are also hospital records from [facility] in [place], where patient was that for a couple years. Spoke on the phone with patient's son (Boris). He reports that he sees his father every week or so. Patient was previously living in [place], but came to [place] at the end of January (2.5 months). Patient visited with him 1 week before [place], and took him to a baseball game; at that time the patient was d oing well, ambulating well, and did not exhibit many cognitive deficits. Then, when the son saw him on the week following the game, he felt like he "did not look like the same person". Boris is unsure about the reason for not being on antiplatelets, but has been told the patient is unable to take aspirin/Plavix. Son believes that his pacemaker was placed at [facility]. Discharge Exam General: NAD, vitals as above, lying in bed Pulm: breathing unlabored CV: well perfused extremities: moves all extremities Discharge Plan Discharge Items Patient Disposition: Transfer [facility] Reason For Visit: AMS,AMBULATORY DYSFUNCTION Discharge Diagnosis: Ambulatory dysfunction Condition on Discharge: Fair Activity: As commented below Activity Comment: work with therapy to get stronger Bathing: No limitations Non-emergency contact: Primary Care Provider Call non-emergency contact if: you have any medication questions, your pain is not controlled and your temperature is above 101 Follow-up/Referrals: [place] [place] [Primary Care Provider] - Diet: Carb Consistent or DM2 Addtl Attending Provider Instructions: Mr. Wright, You were hospitalized with worsening cognitive and physical status at home. There was no acute cause found for these changes. We have discontinued your gabapentin as it may have been making your mood disorder worse. Seroquel switched to 25mg at bed time. No other medication changes Please follow up with your PCP Pending Studies at Discharge: No Stand-Alone Forms: [facility] Skilled Items Patient informed of condition?: Yes DNR: Yes Discharge Level of Care: Skilled Communicable Disease: No Discharge Prognosis: Stable Lines: None Urinary Catheter: No Medications and DC Order Prescriptions: New quetiapine 25 mg Tablet 25 mg PO QPM Qty: 30 0RF Continued atorvastatin 40 mg Tablet 40 mg PO DAILY Qty: 0 levetiracetam [Keppra] 500 mg Tablet 1,000 mg PO HS levetiracetam [Keppra] 500 mg Tablet 500 mg PO QAM acetaminophen 500 mg Tablet 1,000 mg PO DAILY lamotrigine 100 mg Tablet 100 mg PO DAILY Discontinued quetiapine [Seroquel] 25 mg Tablet 25 mg PO BID gabapentin 100 mg Tablet 100 mg PO TID Discharge Orders: Discharge Order (Routine); Ordered 05/26/25 Ordered By: Cadence Knott/Other Patient Handouts: A1C Admission Data Admit Date/Time: 05/13/25 13:46 Attending Provider: Gonzalez Rodriguez Admit Provider: Mino Solis Primary [place] Provider: [place] [place] Other Providers: [facility] Cortez at [facility]; [facility]; [place]; [facility]; [facility]; [facility] Stay Data Consultations 05/13/25 12:43 ED Decision to Admit Stat Diagnostic Imagining Performed Chest X-Ray 05/13/25 10:37 XR chest 1V portable CLINICAL HISTORY: weakness COMPARISON STUDY: 03/13/2015 FINDINGS: There is an interval left-sided dual-lead pacemaker. Stable mild cardiomegaly without pulmonary vascular congestion. No effusion, consolidation, or pneumothorax. IMPRESSION: No acute findings. ACT 112: Negative or not required by law. Electronically signed by: Luis Fernando Cast[facility] M.D. 05/13/2025 10:[address] 05/13/25 10:37 CT head/brain wo con CLINICAL HISTORY: weak. TECHNIQUE: Multiple axial CT images of the head were obtained without contrast. A dose lowering technique was utilized adhering to the principles of ALARA. CT DOSE: 625.8 mGy.cm COMPARISON: 03/13/2015 FINDINGS: There is progressive severe patchy periventricular hypodensity which is nonspecific but usually represents chronic small vessel ischemic change. There is interval focal hypodensity posteriorly in the occipital lobes consistent with interval infarctions, likely old. There is an interval 2 cm serpiginous increased density finding posterior medial right occipital lobe. There are globus pallidus calcifications. No intracranial hemorrhage seen. No mass effect, midline shift, or hydrocephalus. No skull fracture seen. Visualized paranasal sinuses and mastoid air cells are clear. IMPRESSION: 1. Progressive severe chronic small vessel ischemic changes. 2. Interval infarctions in the posterior occipital lobes, likely chronic. 3. Interval serpiginous increased density finding posterior medial right occipital lobe. This likely represents partially calcified cortex due to prior infarction or hemorrhage. Suggest follow-up MRI with and without contrast to make sure there is no enhancing mass at this location. 4. Otherwise no acute findings seen. 5. Otherwise as described. ACT 112: Positive. There are findings on this exam that require communication between the performing entity and the patient following Patient Test Result Information Act ([place] Act 112) guidelines. The above report was generated using voice recognition software. It may contain grammatical, syntax or spelling errors. Electronically signed by: Luis Fernando Csatillo M.D. 05/13/2025 11:25 AM Hip/Pelvis X-Ray 05/13/25 11:16 EXAM: XR hip LT 2V w pelvis CLINICAL HISTORY: Pelvic pain. TECHNIQUE: X-ray images of the left hip joint AP and lateral, and pelvis AP views were obtained. COMPARISON: No prior studies available for comparison. FINDINGS: Bone Structure: Pelvic bones, including the iliac wings, ischium, pubis, and sacrum, are normal and intact. No evidence of fractures, dislocations, or significant osseous lesions. 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 No evidence of hip dislocation or subluxation. Acetabulum: Acetabular structures appear normal and intact. No signs of acetabular fracture or dysplasia. Symphysis Pubis: Symphysis pubis is normal and intact. No evidence of separation or widening. Sacroiliac Joints: Mild bilateral degenrtaive sacroiliitis. Soft Tissues: Two left-sided pelvic phleboli. Large well-defined midline pelvic density noted in the expected site of the urinary bladder, suggesting contrast filling / large stones for clinical, U/S, and CT correlation. Left-sided calcifications noted overlying the gluteal insertion into the greater trochanter. Additional Findings: No other significant abnormalities noted. IMPRESSION: 1. 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 2. Mild bilateral degenertaive sacroiliitis. 3. Two left-sided pelvic phleboli. 4. Large, well-defined midline pelvic density noted in the expected site of the urinary bladder, suggesting contrast filling rather than large stones for clinical, U/S, and CT correlation. 5. Left-sided calcifications overlying the gluteal insertion into the greater trochanter, suggesting Gluteal calcific tendinitis. 6. No evidence of acute fractures or dislocations. Disclaimer: A subtle bone abnormality or fracture may not be readily apparent on X-rays, thus clinical correlation and further imaging including follow-up CT, MRI, or follow-up X-rays are advised as needed. Electronically signed by Joni Hill 05-13-2025 5:36 PM Head CTA 05/13/25 13:47 CT angio head w con CLINICAL HISTORY: AMS. TECHNIQUE: Unenhanced axial CT scan of the brain is performed. Subsequently, following the IV administration of 120 cc of Optiray, CT angiogram of the brain was performed from the skull base to the vertex. Images are reviewed in the axial, sagittal, and coronal planes. 3-D MIPS images are created and assessed. IV contrast was administered without complication. All measurements were obtained according to NASCET criteria. A dose lowering technique was utilized adhering to the principles of ALARA. CT DOSE: 498.32 mGy.cm COMPARISON STUDY: Head CT earlier today FINDINGS: Distal right vertebral artery is diminutive, anatomic variant. No significant narrowing or occlusion seen at the distal internal carotid or vertebral arteries bilaterally. The anterior, middle, and posterior cerebral arteries are patent bilaterally. Cerebral venous sinuses opacify normally. IMPRESSION: No significant arterial narrowing or occlusion seen at the brain. ACT 112: Negative or not required by law. The above report was generated using voice recognition software. It may contain grammatical, syntax or spelling errors. Electronically signed by: Luis Fernando [facility] M.D. 05/13/2025 2:13 PM Neck CTA 05/13/25 13:47 CT ANGIOGRAPHY OF THE NECK WITH CONTRAST CLINICAL HISTORY: Altered mental status. COMPARISON STUDY: No previous studies for comparison. Technique: CT angiography of the carotid and vertebral arteries was obtained using Optiray and 3D reconstruction on an independent workstation. NASCET criteria was utilized. Automated exposure control was utilized for the study. A dose lowering technique was utilized adhering to the principles of ALARA. Findings: Visualized portions of the lung apices are unremarkable. A left subclavian pacer is partially imaged. There is no cervical lymphadenopathy. There are no cervical spine fractures. There is moderate plaque within the carotid bifurcations. This results in mild focal stenosis of the proximal right internal carotid artery with 30%. Vessel measures 4.3 mm at site of narrowing and 5.6 mm distally. There is no stenosis of the cervical left internal carotid artery. The left vertebral artery is dominant. There is no aneurysm or dissection within the neck. IMPRESSION: 1. Focal mild (30%) stenosis of the proximal right internal carotid artery. 2. No additional stenoses within the neck. 3. No aneurysm or dissection within the neck. ACT 112: Negative or not required by law. Electronically signed by: Micheal Timmons M.D. 05/13/2025 2:20 PM Pending Results Patient Have Any Pending Studies at Discharge: No Discharge Instructions Given to Patient (Per Discharging Provider) Mr. Wright, Luca were hospitalized with worsening cognitive and physical status at home. There was no acute cause found for these changes. We have discontinued your gabapentin as it may have been making your mood disorder worse. Seroquel switched to 25mg at bed time. No other medication changes Please follow up with your PCP Total Time Total Time Spent Total Time Spent (In Minutes): Time spent day of discharge 25 minutes including direct patient care, medication reconciliation, documentation, review of labs and images, and coordination of care. Coding Level of Care Code 35225 IN/OBS DISCH 30 MIN/LESS Diagnoses Altered mental status R41.82 History of CVA (cerebrovascular accident) Z86.73 Generalized weakness R53.1 Ambulatory dysfunction R26.2
== END 2025-05-26 10:31 | DRG 884 ==
LOC: ED 10:27 → 2N 13:46 → INTOOBSV 13:46 → SUATTDRO 13:46 → 2N 14:36 → 3N 05-16 23:29